=== PATIENT | female | born 1950 | race Caucasian/White ===

== ENCOUNTER 2018-03-03 01:06 | Outpatient (CLI) | payer MEDICARE, BC, SELFPAY ==
[2018-03-03 11:04] LABS: ALT 24 U/L (12-78); AST 21 U/L (15-37); Albumin 3.5 g/dL (3.4-5.0); Alkaline Phosphatase 112 U/L (46-116); Anion Gap 5.7 mmol/L (3-11); BUN 11 mg/dL (7-18); Bilirubin, Total 0.6 mg/dL (0.2-1.0); CO2 28.3 mmol/L (21.0-32.0); Calcium 8.4 mg/dL (8.5-10.1); Chloride 105 mmol/L (98-107); Cholesterol 296 mg/dL (50-200); Estimated GFR 54.97 (mL/min/1.73m2); Glucose 93 mg/dL (70-100); HDL Cholesterol 69 mg/dL (40-60); LDL CHOLESTEROL 206 mg/dL (<100); Potassium 4.4 mmol/L (3.5-5.1); Sodium 139 mmol/L (136-145); Total Protein 6.6 g/dL (6.4-8.2); Triglyceride 124 mg/dL (30-150)
== END 2018-03-03 01:26 ==
PROVIDERS: PCP Family Medicine; Visit Provider Family Medicine
DX: E78.00 Pure hypercholesterolemia, unspecified (principal); Z82.49 Family history of ischemic heart disease and other diseases of the circulatory system
CPT/HCPCS: 36415; 80053; 80061; 83721

== ENCOUNTER 2018-03-07 10:38 | Outpatient (CLI) | payer MEDICARE, BC, SELFPAY ==
[2018-03-09 06:43] LABS: Vitamin D 25 Total 19.6 ng/ml (30-100)
== END 2018-03-07 10:58 ==
PROVIDERS: PCP Family Medicine; Visit Provider Family Medicine
DX: M81.0 Age-related osteoporosis without current pathological fracture (principal)
CPT/HCPCS: 36415; 82306

== ENCOUNTER 2019-03-08 01:31 | Outpatient (CLI) | payer MEDICARE, BC, SELFPAY | END 2019-03-08 01:51 | PROVIDERS: PCP Family Medicine; Visit Provider Family Medicine | DX: R69 Illness, unspecified (principal) ==

== ENCOUNTER 2019-03-13 08:07 | Outpatient (CLI) | payer MEDICARE, BC, SELFPAY ==
[2019-03-13 11:51] LABS: ALT 23 U/L (14-59); Calculated LDL 231 mg/dL; Cholesterol 327 mg/dL (50-200); HDL Cholesterol 71 mg/dL (40-60); Triglyceride 125 mg/dL (30-150)
[2019-03-15 07:25] LABS: Vitamin D 25 Total 25.7 ng/ml (30-100)
== END 2019-03-13 08:27 ==
PROVIDERS: PCP Family Medicine; Visit Provider Family Medicine
DX: E78.5 Hyperlipidemia, unspecified (principal); E55.9 Vitamin D deficiency, unspecified
CPT/HCPCS: 36415; 80061; 82306; 84460

== ENCOUNTER 2019-04-03 16:53 | Outpatient (CLI) | payer MEDICARE, BC, SELFPAY ==
--- NOTE | 2019-04-03 15:17 | DI.MAMMO_ITS ---
EXAM: MG MAMMO SCREENING CLINICAL HISTORY: screening Z12.39 TECHNIQUE: Bilateral full field digital CC and MLO mammographic images were obtained with 3D tomosyn thesis and utilizing computer aided detection (CAD). COMPARISON: Available for comparison. FINDINGS: Masses/Architectural Distortion: None seen. Microcalcifications: No suspicious pleomorphic-type are seen. Skin Thickening/Nipple Retraction: None. IMPRESSION: 1. No significant interval change with no specific features of malignancy noted. 2. Unless there is more urgent need, screening mammography is recommended, as per [employer] guidelines. ACR BI-RAD Category- 1 Negative Breast Density - Category A - Almost entirely fatty A negative radiographic report should not delay biopsy if a dominant or clinically suspicious mass is present. Up to ten percent of cancers are not identified on mammography. A negative report may reinforce clinical impression. Adenosis and dense breasts may obscure an underlying neoplasm. False positive reports average 6 to 10%.
== END 2019-04-03 17:13 ==
PROVIDERS: PCP Family Medicine; Visit Provider Nurse Practitioner Family
DX: Z12.31 Encounter for screening mammogram for malignant neoplasm of breast (principal)
CPT/HCPCS: 77063; 77067

== ENCOUNTER 2019-07-06 00:11 | Outpatient (CLI) | payer MEDICARE, BC, SELFPAY ==
[2019-07-06 12:13] LABS: HCT 40.6 % (36.0-46.0); HGB 13.6 g/dL (12.0-15.5); Mean Corp. HGB Concentration 33.5 g/dL (32.0-36.0); Mean Corpuscular Hemoglobin 33.3 pg (27.0-33.0); Mean Corpuscular Volume 99.5 fL (80-95); Mean Platelet Volume 10.9 fL (8.0-11.0); Platelet Count 295 x1000/uL (130-400); RBC 4.08 m/cumm (4.00-5.20); RBC Distribution Width 12.7 % (11.7-14.6); White Blood Cell Count 4.16 k/cumm (4.4-10.8)
[2019-07-06 12:26] LABS: ALT 21 U/L (14-59); AST 15 U/L (15-37); Albumin 3.5 g/dL (3.4-5.0); Alkaline Phosphatase 100 U/L (46-116); Anion Gap 6.7 mmol/L (3-11); BUN 11 mg/dL (7-18); Bilirubin, Total 0.5 mg/dL (0.2-1.0); CO2 27.3 mmol/L (21.0-32.0); CREATININE 0.88 mg/dL (0.55-1.02); Calcium 8.6 mg/dL (8.5-10.1); Calculated LDL 225 mg/dL (<100); Chloride 106 mmol/L (98-107); Cholesterol 313 mg/dL (<200); Glucose 90 mg/dL (74-106); HDL Cholesterol 62 mg/dL (40-60); Sodium 140 mmol/L (136-145); Total Protein 6.7 g/dL (6.4-8.2); Triglyceride 134 mg/dL (<150)
== END 2019-07-06 00:31 ==
PROVIDERS: PCP Family Medicine; Visit Provider Family Medicine
DX: E78.00 Pure hypercholesterolemia, unspecified (principal); Z82.49 Family history of ischemic heart disease and other diseases of the circulatory system
CPT/HCPCS: 36415; 80053; 80061; 85027

== ENCOUNTER 2020-03-24 04:08 | Outpatient (CLI) | payer MEDICARE, BC, SELFPAY ==
[2020-03-24 13:00] LABS: Absolute Basophil Count 0.03 10^3/uL (0.0-0.2); Absolute Eosinophil Count 0.09 10^3/uL (0.0-0.7); Absolute Lymphocyte Count 1.07 10^3/uL (1.2-3.4); Absolute Monocyte Count 0.34 10^3/uL (0.1-0.8); Absolute Neutrophil Count 2.55 10^3/uL (1.2-6.7); Basophils % 0.7; Eosinophils % 2.2; HCT 40.7 % (36.0-46.0); HGB 13.3 g/dL (11.2-15.7); Lymphocytes % 26.2; MCH 33.1 pg (27.0-33.0); MCHC 32.7 % (32.0-36.0); MCV 101.2 fL (80-95); MPV 11.1 fL (8.0-11.0); Monocytes % 8.3; Neutrophils % 62.6; Nucleated RBC 0 %; Platelet Count 300 10^3/uL (130-400); RBC 4.02 10^6/uL (3.93-5.22); RDW 12.9 % (11.7-14.6); RDW-SD 48.4 fL; WBC 4.08 10^3/uL (4.4-10.8)
[2020-03-24 13:58] LABS: Calculated LDL 207 mg/dL (<100); Cholesterol 305 mg/dL (<200); HDL Cholesterol 71 mg/dL (40-60); Triglyceride 137 mg/dL (<150)
[2020-03-24 14:05] LABS: Vitamin D 25 Total 21.2 ng/ml (30-100)
== END 2020-03-24 04:28 ==
PROVIDERS: PCP Family Medicine; Visit Provider Family Medicine
DX: E78.00 Pure hypercholesterolemia, unspecified (principal); E55.9 Vitamin D deficiency, unspecified; G56.00 Carpal tunnel syndrome, unspecified upper limb
CPT/HCPCS: 36415; 80061; 82306; 85025

== ENCOUNTER 2020-04-03 02:46 | Outpatient (CLI) | payer MEDICARE, BC, SELFPAY ==
[2020-04-03 13:28] LABS: ALT 23 U/L (14-59); AST 18 U/L (15-37); Albumin 3.5 g/dL (3.4-5.0); Alkaline Phosphatase 96 U/L (46-116); Anion Gap 4.7 mmol/L (3-11); BUN 12 mg/dL (7-18); Bilirubin, Total 0.6 mg/dL (0.2-1.0); CO2 29.3 mmol/L (21.0-32.0); CREATININE 1.03 mg/dL (0.55-1.02); Calcium 8.7 mg/dL (8.5-10.1); Chloride 106 mmol/L (98-107); Estimated GFR 52.82 (mL/min/1.73m2); Folate 6.6 ng/mL (8.6-20.0); Glucose 91 mg/dL (74-106); Potassium 4.6 mmol/L (3.5-5.1); Sodium 140 mmol/L (136-145); TSH 2.23 uIU/mL (0.36-3.74); Total Protein 6.8 g/dL (6.4-8.2); Vitamin B12 289 pg/mL (193-986)
== END 2020-04-03 03:06 ==
PROVIDERS: PCP Family Medicine; Visit Provider Family Medicine
DX: E78.5 Hyperlipidemia, unspecified (principal); D75.89 Other specified diseases of blood and blood-forming organs
CPT/HCPCS: 36415; 80053; 82607; 82746; 84443

== ENCOUNTER 2020-05-26 15:46 | Outpatient (CLI) | payer MEDICARE, BC, SELFPAY ==
--- NOTE | 2020-05-26 15:15 | DI.RAD_ITS ---
EXAM: XR KNEE RT 3V AP,LAT,DEBRA CLINICAL HISTORY: right knee pain. TECHNIQUE: 2D digital imaging was performed. COMPARISON: No exams were available for comparison FINDINGS: BONES: No acute fracture is present. No bony destructive lesion is seen. JOINTS: The knee is normally aligned. There is a small joint effusion. The articular surfaces are we ll maintained. SOFT TISSUE: Normal. IMPRESSION: Small joint effusion. DATA REPOSITORY: RADIATION DOSE DELIVERED: -- EXAM: XR KNEE RT 3V AP,LAT,DEBRA CLINICAL HISTORY: right knee pain. TECHNIQUE: 2D digital imaging was performed. COMPARISON: No exams were available for comparison FINDINGS: BONES: No acute fracture is present. No bony destructive lesion is seen. JOINTS: The knee is normally aligned. There is a small joint effusion. The articular surfaces are we ll maintained. SOFT TISSUE: Normal.
== END 2020-05-26 16:06 ==
PROVIDERS: PCP Family Medicine; Referring Provider Family Medicine; Visit Provider Student in an Organized Health Care Education/Training Program
DX: M25.461 Effusion, right knee (principal); M25.561 Pain in right knee; M70.51 Other bursitis of knee, right knee; M17.11 Unilateral primary osteoarthritis, right knee
CPT/HCPCS: 73562; 99203

== ENCOUNTER 2020-09-09 09:43 | Outpatient (CLI) | payer MEDICARE, BC, SELFPAY ==
[2020-09-10 18:30] LABS: COVID-19 RT-PCR UVMMC Result Negative (Negative)
== END 2020-09-09 09:44 | disposition home or self-care (01) ==
LOC: LBO 09:44
PROVIDERS: PCP Family Medicine; Visit Provider Nurse Practitioner
DX: Z20.822 Contact with and (suspected) exposure to COVID-19 (principal)
CPT/HCPCS: U0003; U0005

== ENCOUNTER 2020-09-22 03:18 | Outpatient (CLI) | payer MEDICARE, BC, SELFPAY ==
[2020-09-22 12:52] LABS: Abs Immature Grans 0.01 10^3/uL (0.0-0.06); Absolute Basophil Count 0.06 10^3/uL (0.0-0.2); Absolute Eosinophil Count 0.13 10^3/uL (0.0-0.7); Absolute Lymphocyte Count 1.12 10^3/uL (1.2-3.4); Absolute Monocyte Count 0.46 10^3/uL (0.1-0.8); Absolute Neutrophil Count 3.64 10^3/uL (1.2-6.7); Basophils % 1.1; Eosinophils % 2.4; HCT 41.2 % (36.0-46.0); HGB 14.1 g/dL (11.2-15.7); Immature Grans % 0.2; Lymphocytes % 20.7; MCH 33.7 pg (27.0-33.0); MCHC 34.2 % (32.0-36.0); MCV 98.6 fL (80-95); Monocytes % 8.5; Neutrophils % 67.1; Nucleated RBC 0 %; Platelet Count 291 10^3/uL (130-400); RBC 4.18 10^6/uL (3.93-5.22); RDW 12.3 % (11.7-14.6); RDW-SD 44.4 fL; WBC 5.42 10^3/uL (4.4-10.8)
[2020-09-22 13:05] LABS: Hemoglobin A1C 5.3 % (<5.7)
[2020-09-22 13:21] LABS: Vitamin D 25 Total 26.2 ng/mL (30-100)
[2020-09-22 13:22] LABS: BUN 10 mg/dL (7-18); CREATININE 1.1 mg/dL (0.55-1.02); Calcium 9.1 mg/dL (8.5-10.1); Calculated LDL 188 mg/dL (<100); Chloride 107 mmol/L (98-107); Cholesterol 285 mg/dL (<200); Estimated GFR 48.96 (mL/min/1.73m2); Glucose 93 mg/dL (74-106); HDL Cholesterol 66 mg/dL (40-60); Potassium 4.9 mmol/L (3.5-5.1); Sodium 140 mmol/L (136-145); Triglyceride 159 mg/dL (<150); Vitamin B12 261 pg/mL (193-986)
== END 2020-09-22 03:19 | disposition home or self-care (01) ==
LOC: LOS 03:18
PROVIDERS: PCP Family Medicine; Visit Provider Nurse Practitioner Family
DX: E78.5 Hyperlipidemia, unspecified (principal); E53.8 Deficiency of other specified B group vitamins; E55.9 Vitamin D deficiency, unspecified; D75.89 Other specified diseases of blood and blood-forming organs; R79.89 Other specified abnormal findings of blood chemistry
CPT/HCPCS: 36415; 80048; 80061; 82306; 82607; 82746; 83036; 85025

== ENCOUNTER 2020-12-31 04:49 | Emergency (ER) | payer MEDICARE, BC, SELFPAY ==
[2020-12-31] VITALS (60 sets, daily range): BP systolic 122–190; BP diastolic 50–165; PULSE 63–144; RESP 10–25; TEMP 36.7; O2SAT 93–100
--- NOTE | 2020-12-31 04:45 | RT.EKG_ITS ---
APPROVED REPORT Exam: Resting ECG Reason for Exam: chest pain Patient Location: E HR:81 bpm ECG Measurements Heart Rate 81 AXIS WI 163 P 42 QRSd 89 QRS 17 QT 375 T 10 QTc 435 Conclusion Sinus rhythm...normal P axis, V-rate 60- 99 Normal Dougherty I have reviewed and interpreted ECG and agree with software generated interpretation. Normal Electrocardiogram
--- NOTE | 2020-12-31 05:06 | W.ED.GENAD ---
Discharge Plan Disposition Patient Disposition: HOME Condition: Stable Discharge Details Clinical Impression: Chest pain, SOB (shortness of breath) Primary Care Provider: Pratibha Luke ED Provider: Elenita Edmonds Home Meds and New Rx's Prescriptions: Continued cholecalciferol (vitamin D3) 2,000 unit/drop drops 2,000 unit PO DAILY RF: 0 (DME) Aerochamber Plus Flow-Vu Spacer 1 ea Miscellaneous Q4H PRN Qty: 1 RF: 0 albuterol sulfate [Proventil HFA] 90 mcg/actuation HFA aerosol inhaler 2 puff inhalation Q6H PRN (Reason: shortness of breath or wheezing) Qty: 18 RF: 4 red yeast rice 600 mg Tablet 600 mg PO BID RF: 0 coenzyme Q10 [CoQ-10] 100 mg Capsule 100 mg PO BID RF: 0 No Action omeprazole 20 mg capsule,delayed release(DR/EC) 40 mg PO DAILY RF: 0 Discharge Instructions Instructions: Chest Pain (ED), Dyspnea (ED) Additional Instructions: Please return immediately to the emergency department if you develop any new or worsening symptoms, if your condition does not improve as expected, or if you become otherwise concerned. It is extremely important that you call soon as possible to make an appointment to be seen in follow-up for this visit by your primary care doctor and a mother superior. It is also extremely important that you undergo a stress test as we discussed. Referrals: Pratibha Luke, DENITA [Primary Care Provider] - Any Dias MD [ [facility] STAFF PHYSICIAN] - Varinder Morton MD [ CONSULTING PHYSICIAN] - Discharge Data Discharge Date/Time-TO BE ENTERED AT DEPARTURE: 12/31/20 11:02 Medical Decision Making <Cecil Longoria MD - Last Filed: 12/31/20 07:22> Patient presenting to ED with complaint of chest pressure and shortness of breath with exertion. Chest pressure and shortness of breath are unrelated. Chest pressure is random. Shortness of breath with exertion. This has been ongoing for about a month. Chest pressure has been ongoing for years. Her EKG is normal today. Do not think this is anginal equivalent but certainly need to consider it. Also consider anemia to she does not appear very pale. Does not strike me as being related to PE. Will obtain chest x-ray and cardiac labs. Will give aspirin pending work-up results. Laboratory studies are unremarkable. She is not anemic. First troponin is negative. Assuming her shortness of breath with exertion is anginal equivalent, she still scores low probability both by HEART as well as EDACS. I have discussed risk stratification and outpatient versus inpatient work-up. I think it is reasonable if second troponin and EKG remains unchanged patient can be discharged for outpatient stress testing and follow-up with primary care. She is comfortable with this plan but understands that any new or worsening symptoms would require return to ED for reevaluation possible admission. Patient be signed out to oncoming physician to follow-up on second troponin and disposition patient Medical Records Medical records reviewed: Yes I reviewed the patient's medical records. Lab Data Lab results reviewed: Yes I reviewed the patient's lab results. ECG Data Attestation: I personally reviewed and interpreted this ECG (s) as follows: Prior ECG tracings: available for review Interpretation: see EKG <Elenita Edmonds MD - Last Filed: 01/12/21 21:06> Linda Hoffmann was signed out to me at time of shift change with troponin pending. Troponin resulted as negative. On my evaluation Pt denies any active chest pain, reports that she has had intermittent chest pressure for years that has not been worsening and is not currently occuring. She reports exertional SOB over the past month. Denies any SOB at rest or current SOB. Pt states that she feels well and is ready to go home. Exam/hx at this time not c/w pulmonary embolus, acute aortic process, sepsis. Concern for SOB as being possible anginal equivalent. Low risk by HEART score, plan for outpt f/u with cardiology, outpt stress testing. I had a lengthy discussion with Patient regarding return to emergency department precautions, home care, and importance of outpatient follow-up. Pt verbalizes understanding of the plan and is amenable. Patient discharged to home with clear plan for outpatient follow-up. All questions were answered. Disposition decision was made weighing the risks and benefits of hospitalization versus outpatient treatment, the risk for further decompensation, and the patient's wishes. Medical Records Medical records reviewed: Yes I reviewed the patient's medical records. Lab Data Lab results reviewed: Yes I reviewed the patient's lab results. Labs: Laboratory Tests Range/Units 12/31/20 12/31/20 12/31/20 05:25 05:25 06:40 WBC (4.4-10.8) 10^3/uL 4.47 RBC (3.93-5.22) 10^6/uL 4.11 Hgb (11.2-15.7) g/dL 13.6 Hct (36.0-46.0) % 40.5 MCV (80-95) fL 98.5 H MCH (27.0-33.0) pg 33.1 H MCHC (32.0-36.0) % 33.6 RDW (11.7-14.6) % 12.3 Plt Count (130-400) 10^3/uL 268 MPV (8.0-11.0) fL 10.6 Immature Gran % 0.2 Neutrophils % 58.0 Lymphocytes % 26.8 Monocytes % 11.4 Eosinophils % 2.9 Basophils % 0.7 Nucleated RBC % % 0 Absolute Neutrophils (1.2-6.7) 10^3/uL 2.59 Absolute Lymphocytes (1.2-3.4) 10^3/uL 1.20 Absolute Monocytes (0.1-0.8) 10^3/uL 0.51 Absolute Eosinophils (0.0-0.7) 10^3/uL 0.13 Absolute Basophils (0.0-0.2) 10^3/uL 0.03 Sodium (136-145) mmol/L 142 Potassium (3.5-5.1) mmol/L 3.8 Chloride (98-107) mmol/L 107 Carbon Dioxide (21.0-32.0) mmol/L 26.6 Anion Gap (3-11) mmol/L 8.4 BUN (7-18) mg/dL 9 Creatinine (0.55-1.02) mg/dL 1.0 Estimated GFR/1.73 m2 (mL/min/1.73m2) 54.66 Glucose (74-106) mg/dL 102 Calcium (8.5-10.1) mg/dL 8.7 Magnesium (1.8-2.4) mg/dL 2.1 Total Bilirubin (0.2-1.0) mg/dL 0.6 AST (15-37) U/L 20 ALT (14-59) U/L 26 Alkaline Phosphatase (46-116) U/L 93 Troponin I (<0.06) ng/mL < 0.05 NT-Pro-B Natriuret Pep (<300) pg/mL 46 Total Protein (6.4-8.2) g/dL 7.1 Albumin (3.4-5.0) g/dL 3.5 COVID-19 Source Nasal/Nares SARS-CoV-2 (PCR) (Negative) Negative Range/Units 12/31/20 08:20 WBC (4.4-10.8) 10^3/uL RBC (3.93-5.22) 10^6/uL Hgb (11.2-15.7) g/dL Hct (36.0-46.0) % MCV (80-95) fL MCH (27.0-33.0) pg MCHC (32.0-36.0) % RDW (11.7-14.6) % Plt Count (130-400) 10^3/uL MPV (8.0-11.0) fL Immature Gran % Neutrophils % Lymphocytes % Monocytes % Eosinophils % Basophils % Nucleated RBC % % Absolute Neutrophils (1.2-6.7) 10^3/uL Absolute Lymphocytes (1.2-3.4) 10^3/uL Absolute Monocytes (0.1-0.8) 10^3/uL Absolute Eosinophils (0.0-0.7) 10^3/uL Absolute Basophils (0.0-0.2) 10^3/uL Sodium (136-145) mmol/L Potassium (3.5-5.1) mmol/L Chloride (98-107) mmol/L Carbon Dioxide (21.0-32.0) mmol/L Anion Gap (3-11) mmol/L BUN (7-18) mg/dL Creatinine (0.55-1.02) mg/dL Estimated GFR/1.73 m2 (mL/min/1.73m2) Glucose (74-106) mg/dL Calcium (8.5-10.1) mg/dL Magnesium (1.8-2.4) mg/dL Total Bilirubin (0.2-1.0) mg/dL AST (15-37) U/L ALT (14-59) U/L Alkaline Phosphatase (46-116) U/L Troponin I (<0.06) ng/mL < 0.05 NT-Pro-B Natriuret Pep (<300) pg/mL Total Protein (6.4-8.2) g/dL Albumin (3.4-5.0) g/dL COVID-19 Source SARS-CoV-2 (PCR) (Negative) HPI <Cecil Longoria MD - Last Filed: 12/31/20 07:22> General Mode of arrival: ambulatory. Date/Time Provider Initiated Documentation: 12/31/20 05:06. Limitations to Documentation: no limitations. Information obtained by: patient and RN notes reviewed. HPI Narrative: Patient presents to ED with complaint of chest discomfort as well as shortness of breath. Patient reports the chest discomfort is a pinching tingling pressure in her chest that she is actually had for quite some time on and off. Not any different than before. It is random in nature. Seem to be a little bit worse to her this morning. However, what is really bothering her is shortness of breath with exertion. She has difficulty walking or even going up stairs at this point. She has not experienced any of the chest pressure sensation with exertion. She does not develop shortness of breath with the chest pain. She denies fever, cough, URI symptoms. She does have an albuterol inhaler and states she was told she has asthma but has not really used it this summer she has no leg pain or leg swelling. She has no prior history of cardiac disease or thromboembolic disease. Currently asymptomatic in the ED Related Data Home Medications Medication Instructions Recorded Confirmed cholecalciferol (vitamin D3) 2,000 unit PO DAILY 03/27/19 01/08/21 inhalational spacing device #1 unit 06/30/20 01/08/21 albuterol sulfate 90 mcg/actuation 2 puff INHALATION Q6H PRN #18 g 07/02/20 01/08/21 aerosol inhaler coenzyme Q10 [CoQ-10] 100 mg PO BID 12/31/20 01/08/21 red yeast rice 600 mg PO BID 12/31/20 01/08/21 omeprazole 20 mg capsule,delayed 40 mg PO DAILY cap 01/08/21 01/08/21 release Previous Rx's Medication Instructions Recorded inhalational spacing device #1 unit 06/30/20 albuterol sulfate 90 mcg/actuation 2 puff INHALATION Q6H PRN #18 g 07/02/20 aerosol inhaler Allergies Allergy/AdvReac Type Severity Reaction Status Date / Time pravastatin AdvReac Intermediate ARTHRALGIAS Unverified 01/08/21 10:38 atorvastatin AdvReac Mild muscle Unverified 01/08/21 10:38 aches [id number] Reductase AdvReac Mild swelling/my Verified 01/08/21 10:38 Inhibitor algias General Stated Complaint: Chest Pain CATHY: 2 Review of Systems <Cecil Longoria MD - Last Filed: 12/31/20 07:22> Narrative: As documented in HPI otherwise negative as below. Const: no fever, chills, weakness Resp: no cough, pleuritic pain CV: no diaphoresis, edema, syncope GI: no abdominal pain, nausea, vomiting, diarrhea Neuro: no headache, numbness, focal weakness, confusion PFSH <Cecil Longoria MD - Last Filed: 12/31/20 07:22> Medical History Degenerative joint disease of right knee Folate deficiency GERD (gastroesophageal reflux disease) Gluten intolerance Hyperlipidemia IBS (irritable bowel syndrome) Macrocytosis without anemia Mild intermittent reactive airway disease Vitamin D deficiency Surgical History S/P colonoscopy Family History Mother , AGE 62 Asthma Father , AGE 68 Lung cancer Throat cancer Sister No problems noted. Sister No problems noted. Brother No problems noted. Brother , AGE 71 Heart disease Brother Diabetes Hyperlipidemia Brother , AGE 27 Heart disease Brother No problems noted. Son No problems noted. Son No problems noted. Daughter No problems noted. Maternal Grandfather , age 71 Diabetes Heart disease Paternal Grandfather , age 67 Heart disease Maternal Grandmother , age 78 Breast cancer Stomach cancer Paternal Grandmother , age 86 Heart disease Hypertension Social History Smoking/Tobacco Use Status: Never Second Hand Exposure: Yes Smoking risk assessment performed?: Yes Alcohol Intake: never Drug use: Never Substance use type: does not use Caregiver/Support person: No Household members: spouse Housing: house Communication Needs: None Do you need help understanding health information?: Rarely Pets and animals: Yes Pets and animals: cat(s) and dog(s) Sexually active: No Current gender identity: female What is your relationship status?: How often do you talk on the phone with friends or family?: three or more times per week How often do you get together with friends or relatives?: twice per week How often do you attend yazidism or religion services?: decline to answer Do you belong to any clubs or organized social groups?: yes Panel score (0-1 are the most socially isolated patients): 3 What type of physical activity do you participate in: walking and other Details: exercise bike Duration: 15-30 minutes/day Frequency: 1-2 times per week Amy/Anabaptism: [employer] Special amy needs: No Seatbelt use: always Helmet use: Yes Helmet use: sometimes Drive intox or ride w/intox bobtail driver: No Do you feel safe at home: Yes Do you feel safe in your relationship?: Yes Victim of physical abuse: No Victim of emotional abuse: No Victim of sexual abuse: No Would you like helpful sources: No Exam <Cecil Longoria MD - Last Filed: 12/31/20 07:22> Narrative Exam Narrative: Const: WDWN female in NAD. HEENT: NC/AT. Normal facial exam. Eyes: Normal conjunctiva and sclera. Neck: Supple. Trachea midline. Lungs: Normal respiratory effort. Lungs are clear. Cor: RRR without murmur/gallop. Good radial pulses. GI: Soft. NT/ND. No guarding or rebound. Neuro: A+O x 3. Normal speech, mentation, gait. Cranial nerves II - XII grossly intact. No gross motor or sensory deficit. Ext: No C/C/E. No calf tenderness. Skin: Warm and dry without rash. Course <Cecil Longoria MD - Last Filed: 12/31/20 07:22> Vital Signs Vital signs: Vital Signs Temperature 98.1 F 12/31/20 05:02 Pulse 76 12/31/20 05:02 Respiratory Rate 20 12/31/20 05:02 Blood Pressure 181/73 H 12/31/20 05:02 Pulse Oximetry 99 12/31/20 05:02 Temperature 98.1 F 12/31/20 05:02 Temperature Source Skin 12/31/20 05:02 Pulse 76 12/31/20 05:02 Respiratory Rate 20 12/31/20 05:02 Blood Pressure 181/73 H 12/31/20 05:02 Pulse Oximetry 99 12/31/20 05:02 Oxygen Delivery Method Room Air 12/31/20 05:02 Oxygen Flow Rate 0 12/31/20 05:02 Pain Level 5 12/31/20 05:02 Sign Out <Cecil Longoria MD - Last Filed: 12/31/20 07:22> Sign Out Data: Sign Out Comment: If repeat EKG and troponin are negative patient be discharged home with outpatient stress testing and follow-up Last updated by Cecil Longoria MD at 12/31/20 07:48
--- NOTE | 2020-12-31 05:15 | DI.RAD_ITS ---
Exam(s) XR CHEST 2V PA LATERAL EXAM: XR CHEST 2V PA LATERAL CLINICAL HISTORY: sob. TECHNIQUE: 2D digital imaging was performed. COMPARISON: Prior chest x-ray June 2009 FINDINGS: Heart size is normal. The mediastinum is not widened. Lungs are clear. No infiltrates nor pleural effusions. Chest leads in place IMPRESSION: No acute pulmonary findings. DATA REPOSITORY: RADIATION DOSE DELIVERED:
[2020-12-31 05:36] LABS: Abs Immature Grans 0.01 10^3/uL (0.0-0.06); Absolute Basophil Count 0.03 10^3/uL (0.0-0.2); Absolute Eosinophil Count 0.13 10^3/uL (0.0-0.7); Absolute Monocyte Count 0.51 10^3/uL (0.1-0.8); Absolute Neutrophil Count 2.59 10^3/uL (1.2-6.7); Basophils % 0.7; Eosinophils % 2.9; HCT 40.5 % (36.0-46.0); HGB 13.6 g/dL (11.2-15.7); Immature Grans % 0.2; Lymphocytes % 26.8; MCH 33.1 pg (27.0-33.0); MCHC 33.6 % (32.0-36.0); MCV 98.5 fL (80-95); MPV 10.6 fL (8.0-11.0); Monocytes % 11.4; Nucleated RBC 0 %; Platelet Count 268 10^3/uL (130-400); RBC 4.11 10^6/uL (3.93-5.22); RDW 12.3 % (11.7-14.6); RDW-SD 44.7 fL; WBC 4.47 10^3/uL (4.4-10.8)
[2020-12-31] MEDS: Aspirin 81 MG CHEW 324 MG CH (05:44)
[2020-12-31 05:56] LABS: ALT 26 U/L (14-59); AST 20 U/L (15-37); Albumin 3.5 g/dL (3.4-5.0); Alkaline Phosphatase 93 U/L (46-116); Anion Gap 8.4 mmol/L (3-11); BUN 9 mg/dL (7-18); Bilirubin, Total 0.6 mg/dL (0.2-1.0); CO2 26.6 mmol/L (21.0-32.0); Calcium 8.7 mg/dL (8.5-10.1); Chloride 107 mmol/L (98-107); Estimated GFR 54.66 (mL/min/1.73m2); Glucose 102 mg/dL (74-106); Magnesium 2.1 mg/dL (1.8-2.4); NT-proBNP 46 pg/mL (<300); Potassium 3.8 mmol/L (3.5-5.1); Sodium 142 mmol/L (136-145); Total Protein 7.1 g/dL (6.4-8.2)
[2020-12-31 05:58] LABS: Troponin I < 0.05 ng/mL (<0.06)
[2020-12-31 06:48] LABS: Source Nasal/Nares
--- NOTE | 2020-12-31 07:22 | NUR.NOTE ---
0715 c/o burning sensation in chest--Dr Longoria notified,Nursing Note:
--- NOTE | 2020-12-31 07:32 | DI.VRAD_ITS ---
PROCEDURE INFORMATION: Exam: XR Chest Exam date and time: 12/31/2020 5:20 AM Age: 70 years old Clinical indication: Other: SOB TECHNIQUE: Imaging protocol: XR of the chest. Views: 2 views. COMPARISON: No relevant prior studies available. FINDINGS: Lungs: Mild chronic interstitial prominence. No consolidation. Pleural spaces: No pleural effusion. No pneumothorax. Heart/Mediastinum: No cardiomegaly. Bones/joints: Unremarkable. IMPRESSION: No acute findings. Dictated and Authenticated by: Federico Carolina MD. Ordering:CLARK Jacob MD
[2020-12-31 07:37] LABS: COVID-19 PCR Negative (Negative)
--- NOTE | 2020-12-31 07:54 | NUR.NOTE ---
Nursing Note: [facility] Neuclear Medicine Exercise Tolerance Test order faxed to [facility], for shortness of breath. Kate Fox
[2020-12-31 08:42] LABS: Troponin I < 0.05 ng/mL (<0.06)
--- NOTE | 2020-12-31 10:24 | NUR.NOTE ---
Addendum entered by Kate Fox 12/31/20 11:36: Referral faxed to [facility] Pulmonology for SOB w/exertion, in 1 to 2 weeks. Kate Fox Original Note: Nursing Note: Referral faxed to [facility] Cardiology for chest pain, in 1 to 2 weeks. Kate Fox
== END 2020-12-31 11:02 | disposition home or self-care (01) ==
PROVIDERS: Emergency Medicine; Emergency Provider Student in an Organized Health Care Education/Training Program; PCP Nurse Practitioner Family
DX: R06.02 Shortness of breath (principal); R07.89 Other chest pain
CPT/HCPCS: 36415; 80053; 87635; 93005; 99284; 71046; 83735; 83880; 84484; 85025; 93010; 99283

== ENCOUNTER 2021-01-05 00:47 | Outpatient (CLI) | payer MEDICARE, BC, SELFPAY ==
--- NOTE | 2021-01-05 08:45 | DI.NM_ITS ---
APPROVED REPORT Exam: Exercise Treadmill Patient Location: Out-Patient Room/Bed: Stress Nurse: Tamica Lopes RN Ordering Provider:CARMEN LUZ, Contact Number: BMI: 32.22 Baseline Rhythm: Sinus Rhythm Indications: Shortness of breath. Medical History Medical History: Sciatica, Migraines, HLD, DJD. Cardiac Medications: Omeprazole, Red yeast rice, Coenzyme Q10, Albuterol sulfate PRN, Allergies: Pravastatin, Atorvastatin, Statins - Hmg- CoA Reductase Inhibitors Cardiac Risk Factors: Hyperlipidemia, FHX of CAD Previous Cardiac Procedures: None Pretest Chest Pain Characteristics: No chest pain or dyspnea at baseline Exercise History: Physically active Physical Disabilities: None Lung Sounds: Clear to auscultation Heart Sounds: Regular Stress Test Details Test: Exercise stress testing was performed using a Hema protocol. Nuclear Acquisition: Rest Tc-99m/Stress Tc-99m 1 day Rest Isotope: Tc-99m Sestamibi. Dose: 11.8 Date: 01/05/2021 Injection Time: 0845 Stress Isotope: Tc-99m Sestamibi. Dose: 36.8 Date: 01/05/2021 Injection Time: 1012 HR Resting HR Supine: 64 bpm Max Heart Rate (APMHR): 149.036161 bpm Resting HR Standin bpm Target HR (85% APMHR): 126.888057 bpm Max HR Achieved: 148 bpm % of APMHR: 99.33 Recovery HR: 77 bpm HR response to stress: Accelerated HR response to stress BP Resting BP Supine: 136/80 mmHg Resting BP Standin/76 mmHg Max BP: 188/62 mmHg Recovery BP: 140/72 mmHg BP response to stress: Normal blood pressure response to stress. ECG Resting ECG: Sinus Rhythm Ectopy: None. Stress ECG: Sinus Tachycardia ST Change: No significant ST segment changes noted Arrhythmia: PVC couplet Comment: T wave inversion noted in lead III at the start of exercise. Recovery ECG: Sinus Rhythm Recovery ST Change: No significant ST segment changes noted Recovery Arrhythmia: PACs Clinical Reason for Termination: Fatigue Stress Symptoms: Dyspnea Exercise duration: 6 min0 sec Exercise capacity: 7.05 METs Rate Pressure Product: [id number] Stress ECG Conclusion 1. Patient exercised for 6 minutes (7 METS). Exercise was stopped due to fatigue. 2. Patient no symptoms suggestive of ischemia. 3. There is no evidence of ischemia on the ECG portion of the exam. Stress Test Summary STAGE Time (mins) Speed (mph) Grade (%) HR BP SYMPTOMS METS Supine 64 136/80 Standing 78 140/76 1 3 1.7 10 136 160/70 SpO2 97%; mild XAVIER 4.6 2 6 2.5 12 148 182/68 SpO2 97%; mod XAVIER 7 1 min recovery 129 188/62 3 min recovery 83 160/64 6 min recovery 77 140/72 MPI Conclusion This is a poor quality study as there was significant bowel uptake affecting the interpretation. Patient's ejection fraction was greater than 70% with stress. There were no wall motion abnormalitie s. There was no clear evidence of ischemia on the imaging portion exam. If clinical suspicion for ische rossana remains high please consider alternative imaging such as CT coronary angiogram. Radiologist Interpretation Radiologist agrees with Photo Tube Assembler's Interpretation. Radiologist Interpretation by: Bari Garcia MD Interpretation Date/Time: 01/06/2021 08:15:07
== END 2021-01-05 01:07 ==
PROVIDERS: PCP Nurse Practitioner Family; Visit Provider Emergency Medicine
DX: R06.02 Shortness of breath (principal); E78.5 Hyperlipidemia, unspecified; Z82.49 Family history of ischemic heart disease and other diseases of the circulatory system
CPT/HCPCS: 78452; 93016; 93018; 93017

== ENCOUNTER 2021-02-03 00:52 | Outpatient (CLI) | payer MEDICARE, BC, SELFPAY ==
--- NOTE | 2021-02-03 15:03 | DI.US_ITS ---
APPROVED REPORT EXAM: Comprehensive 2D, Doppler, and color-flow Echocardiogram Patient Location: Out-Patient Stra[employer] Machine Operator: Cece Bernardo RDCS (AE) Indications: New murmur, h/o SOB, Chest pain Other Information Study Quality: Adequate Conclusion Left Ventricle : The left ventricle is normal size. The left ventricular ejection fraction is within the normal range. There is normal left ventricular wall thickness. There is normal LV segmental wall motion. The left ventricular diastolic function is normal. LVEF is 59%. Right Ventricle : The right ventricle is normal size. The right ventricular systolic function is norm al. The RVSP is 22 mmHg. Atria : The left atrium size is normal. The right atrium size is normal. Mitral Valve : The mitral valve is normal in structure. Trace mitral regurgitation. No evidence of mi tral valve stenosis. Great Vessels : The aortic root is normal in size. The ascending aorta is normal in size. Aortic arch is normal in caliber. IVC is normal in size and collapses >50% with inspiration. Please see remainder of study for further details. Wall motion Left Ventricle The left ventricle is normal size. The left ventricular ejection fraction is within the normal range. There is normal left ventricular wall thickness. There is normal LV segmental wall motion. The left ventricular diastolic function is normal. There is no ventricular septal defect visualized. LVEF is 5 9%. Right Ventricle The right ventricle is normal size. The right ventricular systolic function is normal. The RVSP is 22 mmHg. Atria The left atrium size is normal. The right atrium size is normal. The interatrial septum is intact wit h no evidence for an atrial septal defect. Aortic Valve The Aortic valve is sclerotic. There is no aortic valvular stenosis. No aortic regurgitation is prese nt. Mitral Valve The mitral valve is normal in structure. No evidence of mitral valve stenosis. Trace mitral regurgita tion. Tricuspid Valve The tricuspid valve is normal in structure. There is no tricuspid valve stenosis. Trace tricuspid reg urgitation. Pulmonic Valve The pulmonary valve is normal in structure. There is no pulmonic valvular stenosis. Trace pulmonic re gurgitation. Great Vessels The aortic root is normal in size. The ascending aorta is normal in size. Aortic arch is normal in ca liber. IVC is normal in size and collapses >50% with inspiration. Pericardium There is no pericardial effusion. 2D Dimensions IVSD d PLAX 0.95 cm F: 0.6-1.0 LV Vol A2C d MOD 49.8 mL LVPW d PLAX 0.95 cm F: 0.6 - 1.0 LV Vol A4C d MOD 65.3 mL LVID d PLAX 4.30 cm F: 3.8 - 5.2 LA vol/ BSA A2C s A-L 21.1 mL/m2 LVDs 2.90 cm F: 2.2 - 3.5 LA vol/ BSA A4C s A-L 26.7 mL/m2 Ao Root d 2.69 cm F: 2.7 - 3.3 LA Vol/ BSA Biplane s A-L 24.5 mL/m2 RA Area A4C 10.90 cm2 LA Area A4C s MOD 16.56 cm2 RA Vol/ BSA A4C s A-L 14.3 mL/m2 LA Area A2C s MOD 15.17 cm2 Ao Asc Diam d 3.07 cm F: 2.3 - 3.1 LV EF A4C MOD 58.4 % LV EF Teichholz 60.9 % LV EF A2C MOD 60.7 % LVEF (Stahl's) 59.08 % F: 54 - 74 LV EF Biplane MOD 59.1 % LV Volume 45.40 mL F: 46 - 106 SV 33.82 mL LV Volume Index 26.70 mL/m2 F: 29 - 61 SV Index 19.83 mL/m2 LV Vol Biplane MOD 57.2 mL FS 32.30 % M-Mode TAPSE 2.41 cm (M/F) >1.7 LV Diastology MV E' medial 0.079 (>0.07 m/s) E/A Ratio 0.8 LV E/e MED 9.25 (<14) MV E Vmax 0.74 (0.4-1.3 m/s) MV E' lateral 0.066 (>0.1 m/s) MV A Vmax 0.90 (0.4-1.3 m/s) LV E/e LAT 11.10 (<14) MV E/A Ratio 0.80 MV E/E' medial 9.26 MV E/E' lateral 11.15 Aortic Valve LVOT Area 3.34 cm2 AoV Area Vmax 2.52 cm2 LVOT Vmax 1.10 m/s AoV Area/ BSA (Vmax) 1.47 cm2/m2 LVOT Mean Femi. 0.70 m/s LAURA Mean Femi. 1.98 cm2 LVOT Peak Grad 4.8 mmHg LAURA Mean Femi. Index 1.16 cm2/m2 LVOT Mean Grad 2.3 mmHg LVOT VTI 0.246 m LVOT Diam s 2.05 cm AoV Vmax 1.46 m/s Velocity Ratio 0.75 AoV Mean Femi. 1.19 m/s AoV Peak Grad 8.5 mmHg LVOT SV 82.24 mL AoV Mean Grad 6.0 mmHg AoV VTI 0.329 m AoV Area VTI 2.50 cm2 AoV Area/ BSA (VTI) 1.46 cm/m2 Mitral Valve MV DT 221 (160-240 msec) MV PHT 64 msec MV Area PHT 3.43 cm2 MV VTI 0.262 m MV Area VTI 3.14 (4.0-6.0 cm2) Pulmonary Valve PV Vmax 1.15 (0.5-1.5 m/s) RVOT Peak Gr. 3.56 mmHg PV Peak Grad 5.3 mmHg RVOT Mean Gr. 1.70 mmHg PV Mean Grad 2.7 mmHg RVOT VTI 0.183 m PV VTI 0.229 m RVOT Vmax 0.94 m/s Tricuspid Valve TR Peak Grad 19.3 mmHg TR Vmax 2.20 m/s RA Pressure 3.00 mmHg RVSP (TR) 22.4 mmHg
== END 2021-02-03 01:12 ==
PROVIDERS: PCP Nurse Practitioner Family; Visit Provider Nurse Practitioner Family
DX: R06.02 Shortness of breath (principal); R07.9 Chest pain, unspecified
CPT/HCPCS: 93306

== ENCOUNTER 2021-03-20 01:09 | Outpatient (CLI) | payer MEDICARE, BC, SELFPAY ==
[2021-03-20 12:55] LABS: Calculated LDL 224 mg/dL (<100); Cholesterol 323 mg/dL (<200); HDL Cholesterol 69 mg/dL (40-60); Triglyceride 151 mg/dL (<150)
== END 2021-03-20 01:10 | disposition home or self-care (01) ==
LOC: LOS 01:10
PROVIDERS: PCP Nurse Practitioner Family; Visit Provider Nurse Practitioner Family
DX: E78.5 Hyperlipidemia, unspecified (principal)
CPT/HCPCS: 36415; 80061

== ENCOUNTER 2021-05-26 02:27 | Outpatient (CLI) | payer MEDICARE, BC, SELFPAY ==
[2021-05-26 11:45] LABS: Calculated LDL 224 mg/dL (<100); Cholesterol 320 mg/dL (<200); HDL Cholesterol 74 mg/dL (40-60); Triglyceride 111 mg/dL (<150)
== END 2021-05-26 02:28 | disposition home or self-care (01) ==
LOC: LBO 02:27
PROVIDERS: PCP Nurse Practitioner Family; Visit Provider Nurse Practitioner Family
DX: E78.5 Hyperlipidemia, unspecified (principal)
CPT/HCPCS: 36415; 80061

== ENCOUNTER 2021-06-03 02:39 | Outpatient (CLI) | payer MEDICARE, BC, SELFPAY ==
[2021-06-03 09:22] LABS: FREE T4 0.97 ng/dL (0.76-1.46); TSH 2.17 uIU/mL (0.36-3.74)
[2021-06-03 16:26] LABS: T3,Free 3.4 pg/mL (2.8-5.3)
[2021-06-04 00:23] LABS: Vitamin D 25 Total 25.7 ng/mL (30-100)
== END 2021-06-03 02:40 | disposition home or self-care (01) ==
LOC: LBO 02:39
PROVIDERS: PCP Nurse Practitioner Family; Visit Provider Naturopath
DX: E78.00 Pure hypercholesterolemia, unspecified (principal); M85.80 Other specified disorders of bone density and structure, unspecified site; K21.9 Gastro-esophageal reflux disease without esophagitis; E55.9 Vitamin D deficiency, unspecified; E66.9 Obesity, unspecified; R53.83 Other fatigue; J45.30 Mild persistent asthma, uncomplicated
CPT/HCPCS: 36415; 82306; 84439; 84443; 84481

== ENCOUNTER 2021-09-23 03:05 | Outpatient (CLI) | payer MEDICARE, BC, SELFPAY ==
[2021-09-23 08:40] LABS: Calcium 8.4 mg/dL (8.5-10.1); Calculated LDL 224 mg/dL (<100); Cholesterol 320 mg/dL (<200); HDL Cholesterol 69 mg/dL (40-60); Triglyceride 136 mg/dL (<150)
[2021-09-23 08:49] LABS: PHOSPHORUS 3.7 mg/dL (2.6-4.7)
[2021-09-23 17:21] LABS: Estradiol <12 pg/mL (See Note)
[2021-09-24 09:38] LABS: Parathyroid Hormone,Intact 107 pg/mL (19-88)
[2021-10-06 16:55] LABS: Procollagen I IntactN-Terminal 47 mcg/L
== END 2021-09-23 03:06 | disposition home or self-care (01) ==
LOC: LBO 03:05
PROVIDERS: PCP Nurse Practitioner Family; Visit Provider Naturopath
DX: E78.00 Pure hypercholesterolemia, unspecified (principal); M85.80 Other specified disorders of bone density and structure, unspecified site; N39.3 Stress incontinence (female) (male); J45.30 Mild persistent asthma, uncomplicated; K21.9 Gastro-esophageal reflux disease without esophagitis; N95.1 Menopausal and female climacteric states
CPT/HCPCS: 36415; 80061; 83519; 82310; 82670; 83970; 84100

== ENCOUNTER 2021-12-09 23:53 | Outpatient (REF) | payer MEDICARE, BC, SELFPAY | END 2021-12-09 23:54 | disposition home or self-care (01) | LOC: LBN 23:53 | PROVIDERS: PCP Nurse Practitioner Family; Visit Provider Nurse Practitioner Family | DX: N39.0 Urinary tract infection, site not specified (principal) | CPT/HCPCS: 87086 ==

== ENCOUNTER → 2022-02-17 00:39 | Outpatient (CLI) | payer MEDICARE, BC, SELFPAY ==
--- NOTE | 2022-02-17 | DI.US_ITS ---
Exam(s) US THYROID EXAM: US THYROID CLINICAL HISTORY: DISORDER PARATHYROID GLAND E21.5, TO R/O PARATHYROID MASS. TECHNIQUE: Ultrasound thyroid performed using standard protocol. COMPARISON: US US ECHOCARDIOGRAM from 02/03/2021 FINDINGS: Both thyroid lobes exhibit normal size, as does the isthmus. The echotexture of the thyroid lobes is normal. There are no thyroid nodules. RIGHT THYROID LOBE: Measures 1.5 cm AP x 1.3 cm wide x 4.0 cm craniocaudal No nodules. ISTHMUS: Normal thickness. There are no nodules in the isthmus. LEFT THYROID LOBE: Measures 1.5 cm AP x 1.0 wide x 3.7 cm craniocaudal No nodules. LYMPH NODES: There is no significant adenopathy. IMPRESSION: Normal study. Thyroid gland exhibits normal size and echotexture. There are no thyroid nodules. Th ere is no lymphadenopathy. DATA REPOSITORY:
== END ==
PROVIDERS: PCP Nurse Practitioner Family; Visit Provider Naturopath
DX: E21.4 Other specified disorders of parathyroid gland (principal)
CPT/HCPCS: 76536

== ENCOUNTER → 2022-04-12 01:33 | Outpatient (CLI) | payer MEDICARE, BC, SELFPAY ==
--- NOTE | 2022-04-12 09:00 | DI.MAMMO_ITS ---
Exam(s) MAMMO SCREENING EXAM: MAMMO SCREENING CLINICAL HISTORY: screening, Z12.39. TECHNIQUE: Bilateral full field digital CC and MLO mammographic images were obtained with 3D tomosyn thesis and utilizing computer aided detection (CAD). COMPARISON: Prior mammograms were reviewed. FINDINGS: There has been no significant change in the appearance and distribution of the fibroglandular tissue. There are no new spiculated masses nor malignant appearing microcalcification groups. There is no significant architectural distortion nor skin thickening-retraction. IMPRESSION: No radiographic evidence of malignancy. BI-RADS Category 1 - Negative Breast Density - Category B - Scattered areas of fibroglandular density Breast density Category C or D implies that the patient has dense breast tissue. Dense breast tissue can make it harder to find cancer on a mammogram. Dense breast tissue is also associated with an incr eased risk of breast cancer. This information about the result of the mammogram report was provided to the patient to raise their awareness. Use this report when you speak with the patient about their risks for breast cancer, which includes their family history. At that time, you may recommend additional screening tests (Ultrasoun d or MRI) as these tests may add significant information. A negative radiographic report should not delay biopsy if a dominant or clinically suspicious mass is present. Up to ten percent of cancers are not identified on mammography. A negative report may reinforce clinical impression. Adenosis and dense breasts may obscure an underlying neoplasm. False positive reports average 6 to 10%. Patient will receive a letter notifying them of these results.
== END ==
PROVIDERS: PCP Nurse Practitioner Family; Visit Provider Nurse Practitioner Family
DX: Z12.31 Encounter for screening mammogram for malignant neoplasm of breast (principal)
CPT/HCPCS: 77063; 77067

== ENCOUNTER 2022-04-12 03:03 | Outpatient (CLI) | payer MEDICARE, BC, SELFPAY ==
[2022-04-12 12:53] LABS: Anion Gap 6.6 mmol/L (3-11); BUN 10 mg/dL (7-18); CO2 29.4 mmol/L (21.0-32.0); CREATININE 1.1 mg/dL (0.55-1.02); Calculated LDL 219 mg/dL (<100); Chloride 103 mmol/L (98-107); Cholesterol 310 mg/dL (<200); Estimated GFR 53.06 (mL/min/1.73m2); Glucose 94 mg/dL (74-106); HDL Cholesterol 73 mg/dL (40-60); Sodium 139 mmol/L (136-145); Triglyceride 90 mg/dL (<150)
== END 2022-04-12 03:04 | disposition home or self-care (01) ==
LOC: LBO 03:03
PROVIDERS: PCP Nurse Practitioner Family; Visit Provider Nurse Practitioner Family
DX: E78.5 Hyperlipidemia, unspecified (principal); K90.41 Non-celiac gluten sensitivity
CPT/HCPCS: 36415; 80048; 80061

== ENCOUNTER 2022-08-20 00:39 | Outpatient (CLI) | payer MEDICARE, BC, SELFPAY ==
--- NOTE | 2022-08-20 | DI.DEXA_ITS ---
Exam(s) XR DEXA BONE DENSITY W/WO CRISPIN EXAM: XR DEXA BONE DENSITY W/WO CRISPIN CLINICAL HISTORY: SCREENING FOR OSTEOPOROSIS, Z13.820, ASYMPTOMATIC MENOPAUSAL STATE, Z78.0 TECHNIQUE: COMPARISON: Comparison is 08/19/2015. FINDINGS: Lateral Spine Image: Unremarkable. No compression deformities identified. Left hip: Total T-Score: -2.1. This compares to -1.5 on the prior examination. Total Z-Score: -0.4 T- and Z-scores: Findings are consistent with osteopenia. Lumbar Spine: Total T-Score: -1.7. This compares to -2.5 on the prior examination. Total Z-Score: 0.6 T- and Z-scores: Findings are consistent with osteopenia. IMPRESSION: Osteopenia in the lumbar spine and left hip.
== END 2022-08-20 00:59 ==
LOC: DI 00:40
PROVIDERS: PCP Nurse Practitioner Family; Visit Provider Naturopath
DX: M85.88 Other specified disorders of bone density and structure, other site (principal); Z78.0 Asymptomatic menopausal state
CPT/HCPCS: 77080

== ENCOUNTER 2022-12-01 02:42 | Outpatient (CLI) | payer MEDICARE, BC, SELFPAY ==
[2022-12-01 10:46] LABS: Abs Immature Grans 0.01 10^3/uL (0.0-0.06); Absolute Basophil Count 0.03 10^3/uL (0.0-0.2); Absolute Eosinophil Count 0.11 10^3/uL (0.0-0.7); Absolute Lymphocyte Count 1.04 10^3/uL (1.2-3.4); Absolute Monocyte Count 0.43 10^3/uL (0.1-0.8); Absolute Neutrophil Count 2.59 10^3/uL (1.2-6.7); Basophils % 0.7; Eosinophils % 2.6; HCT 39.6 % (36.0-46.0); HGB 13.3 g/dL (11.2-15.7); Immature Grans % 0.2; Lymphocytes % 24.7; MCH 33.6 pg (27.0-33.0); MCHC 33.6 % (32.0-36.0); MCV 100 fL (80-95); MPV 11.1 fL (8.0-11.0); Monocytes % 10.2; Neutrophils % 61.6; Platelet Count 288 10^3/uL (130-400); RBC 3.96 10^6/uL (3.93-5.22); RDW 12.4 % (11.7-14.6); RDW-SD 45.8 fL; WBC 4.21 10^3/uL (4.4-10.8)
[2022-12-01 11:10] LABS: ALT 22 U/L (14-59); AST 18 U/L (15-37); Albumin 3.4 g/dL (3.4-5.0); Alkaline Phosphatase 105 U/L (46-116); Anion Gap 6.6 mmol/L (3-11); BUN 12 mg/dL (7-18); Bilirubin, Total 0.5 mg/dL (0.2-1.0); CO2 29.4 mmol/L (21.0-32.0); CREATININE 0.9 mg/dL (0.55-1.02); Calcium 8.7 mg/dL (8.5-10.1); Calculated LDL 172 mg/dL (<100); Chloride 107 mmol/L (98-107); Cholesterol 270 mg/dL (<200); Glucose 99 mg/dL (74-106); HDL Cholesterol 67 mg/dL (40-60); Sodium 143 mmol/L (136-145); Triglyceride 158 mg/dL (<150)
[2022-12-01 11:56] LABS: C-Reactive Protein 0.26 mg/dL (0.0-0.3)
[2022-12-01 18:49] LABS: Parathyroid Hormone,Intact 75 pg/mL (19-88)
[2022-12-02 17:34] LABS: Apolipoprotein A1 169 mg/dL (>=140)
[2022-12-03 08:54] LABS: Apolipoprotein B, S 130 mg/dL
[2022-12-06 10:51] LABS: 25-Hydroxy D Total 56 ng/mL; 25-Hydroxy D2 <4.0 ng/mL; 25-Hydroxy D3 56 ng/mL
== END 2022-12-01 02:43 | disposition home or self-care (01) ==
LOC: LOS 02:42
PROVIDERS: PCP Nurse Practitioner Family; Visit Provider Naturopath
DX: Z13.220 Encounter for screening for lipoid disorders (principal); M85.80 Other specified disorders of bone density and structure, unspecified site; E78.00 Pure hypercholesterolemia, unspecified; E55.9 Vitamin D deficiency, unspecified; N39.3 Stress incontinence (female) (male); K21.9 Gastro-esophageal reflux disease without esophagitis; J45.30 Mild persistent asthma, uncomplicated; R42 Dizziness and giddiness; D50.9 Iron deficiency anemia, unspecified
CPT/HCPCS: 36415; 80053; 80061; 82172; 82306; 82652; 83970; 85025; 86140

== ENCOUNTER 2023-03-24 01:30 | Outpatient (CLI) | payer MEDICARE, BC, SELFPAY ==
--- NOTE | 2023-03-24 06:45 | DI.RAD_ITS ---
Exam(s) XR CHEST 2V PA LATERAL EXAM: XR CHEST 2V PA LATERAL CLINICAL HISTORY: SOB,R06.02 TECHNIQUE: 2D digital imaging was performed of the chest. Two images were obtained. PA and lateral views were obtained. COMPARISON: CR,XR XR CHEST 2V PA LATERAL from 12/31/2020 FINDINGS: MEDIASTINUM: Normal. HEART: Normal. PULMONARY VASCULATURE: Normal. LUNGS: Clear. PLEURAL SPACE: No pleural effusion or pneumothorax. BONE:Within normal limits for the patient's age. OTHER FINDINGS:Normal. IMPRESSION: No acute pulmonary findings. DATA REPOSITORY: RADIATION DOSE DELIVERED:
== END 2023-03-24 01:50 ==
LOC: DI 01:30
PROVIDERS: PCP Nurse Practitioner Family; Visit Provider Nurse Practitioner Family
DX: R06.02 Shortness of breath (principal)
CPT/HCPCS: 71046

== ENCOUNTER 2023-03-25 02:24 | Outpatient (CLI) | payer MEDICARE, BC, SELFPAY ==
[2023-03-25] MEDS: Methacholine 100 MG VIAL IH (12:13)
[2023-03-25] MEDS: Albuterol HFA 18 GM 200 PUFF INH IH (12:13)
[2023-03-25] MEDS: Inhaler, Assist Device 1 EACH MC (12:14)
--- NOTE | 2023-03-28 07:45 | W.PFT ---
Date of service: 03/25/23 Time of Service: 10:02 Pulmonary Function Test Result Indications: Dyspnea Interpretation Spirometry: There is no airflow limitation. There was a 15% decrease in FEV1 with administration of 16mg/mL methacholine. Lung Volumes: Normal lung volumes Diffusion Capacity: Normal diffusion Airway Pressure: Normal airways resistance Impression Normal pulmonary function. Negative methacholine challenge Clinical Correlation therefore is recommended.
== END 2023-03-25 02:25 | disposition home or self-care (01) ==
LOC: RT 02:24
PROVIDERS: PCP Nurse Practitioner Family; Visit Provider Nurse Practitioner Family
DX: R06.02 Shortness of breath (principal)
CPT/HCPCS: 94060; 94070; 94726; 94729; 94010; J7674

== ENCOUNTER 2023-04-11 01:01 | Outpatient (CLI) | payer MEDICARE, BC, SELFPAY ==
[2023-04-12 09:47] LABS: Hepatitis C Ab w Rflx HCV PCR Negative (Negative)
== END 2023-04-11 01:02 | disposition home or self-care (01) ==
PROVIDERS: PCP Nurse Practitioner Family; Visit Provider Nurse Practitioner Family
DX: Z00.00 Encounter for general adult medical examination without abnormal findings (principal); Z11.59 Encounter for screening for other viral diseases
CPT/HCPCS: 36415; 86803

== ENCOUNTER → 2023-04-21 02:24 | Outpatient (CLI) | payer MEDICARE, BC, SELFPAY ==
--- NOTE | 2023-04-21 08:00 | DI.MAMMO_ITS ---
Exam(s) MAMMO SCREENING EXAM: MAMMO SCREENING CLINICAL HISTORY: screening,z12.39 TECHNIQUE: Mammograms were interpreted according to the usual protocol including computer analysis w [employer] CAD system, tomosynthesis and C-view imaging. COMPARISON: 2013 through 2021 FINDINGS: The breasts are composed of mainly fatty density , Breast Density category A. No suspicious masses or suspicious microcalcifications are seen. No skin thickening or abnormal axillary lymph nodes are seen. There has been no significant change from prior exams. IMPRESSION: BI-RADS Category 1, Negative mammogram Yearly screening mammography is recommended. Breast Density - Category A, fatty density. A negative radiographic report should not delay biopsy if a dominant or clinically suspicious mass is present. Up to ten percent of cancers are not identified on mammography. A negative report may reinforce clinical impression. Adenosis and dense breasts may obscure an underlying neoplasm. False positive reports average 6 to 10%. Patient will receive a letter notifying them of these results.
== END ==
PROVIDERS: PCP Nurse Practitioner Family; Visit Provider Nurse Practitioner Family
DX: Z12.31 Encounter for screening mammogram for malignant neoplasm of breast (principal); R92.313 Mammographic fatty tissue density, bilateral breasts
CPT/HCPCS: 77063; 77067

== ENCOUNTER 2023-10-20 12:22 | Outpatient (REF) | payer MEDICARE, BC, SELFPAY ==
--- NOTE | 2023-10-20 10:20 | SKI_PTH ---
PATIENT: Lnida Hoffmann LOC: [facility] U#:[id number] AGE/SX: 73/F ROOM: RE10/20/[address]: Danni Lunsford NP : [id number] BED: DIS: 10/20/2023 SPEC #: [id number] RECD: 10/20/23 12:58 STATUS: CANDICE REYisel #: [id number] JENA: 10/20/23 10:[address]: Danni Lunsford DEPT: Surgical Specimen RECD BY: Jacquelin Fontaine ENTERED: 10/20/23 12:59 SP TYPE: LUCY HUERTA DR: RIMMA Galvez Tissues: 1 - SKIN BIOPSY(SHAVE/PUNCH) Procedures: SKIN LEVEL 4 Comments: [id number]
== END 2023-10-20 12:23 | disposition home or self-care (01) ==
LOC: LBN 12:22
PROVIDERS: PCP Nurse Practitioner Family; Visit Provider Nurse Practitioner Family
DX: Z85.828 Personal history of other malignant neoplasm of skin; L43.8 Other lichen planus
CPT/HCPCS: 88305

== ENCOUNTER 2023-12-24 17:58 | Emergency (ER) | payer MEDICARE, BC, SELFPAY ==
[2023-12-24] VITALS (25 sets, daily range): BP systolic 169–196; BP diastolic 64–86; PULSE 76–113; RESP 8–29; TEMP 36.1–37.1; O2SAT 96–97
--- NOTE | 2023-12-24 18:00 | RT.EKG_ITS ---
APPROVED REPORT Exam: Resting ECG Reason for Exam: High blood pressure Patient Location: E HR:106 bpm ECG Measurements Heart Rate 106 AXIS WV 198 P 50 QRSd 92 QRS 15 QT 338 T 27 QTc 448 Conclusion Sinus tachycardia...rate> 99
--- NOTE | 2023-12-24 18:21 | ED.GENADUL_ITS ---
Discharge Plan Disposition Patient Disposition: Home Condition: Stable Discharge Details Clinical Impression: Shortness of breath, Hypertension Primary Care Provider: Pratibha Luke ED Provider: Aquiles Greenberg Home Meds and New Rx's Prescriptions: New amlodipine 5 mg tablet 5 mg PO DAILY Qty: 30 0RF Continued bergamot extract 500 mg capsule PO cholecalciferol (vitamin D3) 25 mcg (1,000 unit) capsule 25 mcg PO DAILY (DME) Aerochamber Plus Flow-Vu Spacer 1 ea Miscellaneous Q4H PRN Qty: 1 0RF Rx Instructions: use daily prn omeprazole 20 mg capsule,delayed release(DR/EC) 20 mg PO DAILY PRN (Reason: heartburn) Qty: 90 4RF alge calcium plus 120 mg PO .COMPLEX Rx Instructions: 120 mg orally; poligugul complex capsule 900 mg PO albuterol sulfate [Proventil HFA] 90 mcg/actuation HFA aerosol inhaler 2 puff inhalation Q6H PRN (Reason: shortness of breath or wheezing) Qty: 18 4RF Discharge Instructions Additional Instructions: Your blood work and CAT scan did not show any concerning findings at this time. Follow-up with your primary care provider within 1 to 2 weeks and discuss if you should continue the amlodipine or switch to a different medication If you feel more ill, develop severe chest pain or severe headaches return to the emergency department for reevaluation HPI General Mode of arrival: ambulatory . Date/Time Provider Initiated Documentation: 12/24/23 17:59 . Limitations to Documentation: no limitations . Information obtained by: patient . History of Present Illness 73 year old F presents to the emergency department with the chief complaint of high bp, sonia cribed as moderate, Patient started experiencing this day(s) (1) and it has been constant. No relieving factors improve symptom(s), No exacerbating factors reported . Patient notes shortness of breath; denies chest pain and fever/chills. Patient did receive the following treatments prior to arrival, none Related Data Home Medications ?Medication ?Instructions ?Recorded ?Confirmed inhalational spacing device #1 unit 06/30/20 09/30/23 (Aerochamber Plus Flow-Vu) omeprazole 20 mg capsule,delayed 20 mg PO DAILY PRN heartburn #90 02/12/21 09/30/23 release caps alge calcium plus 120 mg PO .COMPLEX 12/15/21 09/30/23 poligugul complex 900 mg PO 12/15/21 09/30/23 albuterol sulfate 90 mcg/actuation 2 puff inhalation Q6H PRN 08/19/22 09/30/23 aerosol inhaler (Proventil HFA) shortness of breath or wheezing #18 grams bergamot extract 500 mg capsule cap PO Lower cholesterol 03/23/23 09/30/23 cholecalciferol (vitamin D3) 25 25 mcg PO DAILY 03/23/23 09/30/23 mcg (1,000 unit) capsule amlodipine 5 mg tablet 5 mg PO DAILY #30 tabs 12/24/23 Previous Rx's ?Medication ?Instructions ?Recorded inhalational spacing device #1 unit 06/30/20 (Aerochamber Plus Flow-Vu) omeprazole 20 mg capsule,delayed 20 mg PO DAILY PRN heartburn #90 02/12/21 release caps albuterol sulfate 90 mcg/actuation 2 puff inhalation Q6H PRN 08/19/22 aerosol inhaler (Proventil HFA) shortness of breath or wheezing #18 grams amlodipine 5 mg tablet 5 mg PO DAILY #30 tabs 12/24/23 Allergies Allergy/AdvReac Type Severity Reaction Status Date / Time pravastatin AdvReac Intermediate ARTHRALGIAS Verified 12/24/23 18:13 atorvastatin AdvReac Mild muscle Verified 12/24/23 18:13 aches [id number] Reductase AdvReac Mild swelling/my Verified 12/24/23 18:13 Inhibitor (Wjthyjz-Dft-Mrn algias Reductase Inhibitor) General Stated Complaint: Dizzy/Sync CATHY: 3 Review of Systems All systems reviewed & are unremarkable except as noted in HPI and below Constitutional Constitutional: Denies chills, Denies fever(s) and Denies weakness Cardiovascular Cardiovascular: Denies chest pain and Reports dyspnea Respiratory Respiratory: Denies cough and Reports dyspnea Gastrointestinal Gastrointestinal: Denies abdominal pain, Denies nausea and Denies vomiting Musculoskeletal Musculoskeletal: Denies joint swelling Neurologic Neurologic: Denies weakness Exam Const General: no acute distress Orientation: alert [facility] Head: normal to inspection Ears: external ears normal General nose exam: external nose normal Mouth: moist mucous membranes Eyes General: appearance normal, both eyes and all related structures Neck Neck: normal visual inspection Resp Effort & Inspection: normal respiratory effort and able to speak in complete sentences Auscultation: clear to auscultation bilaterally Cardio Jugular venous pressure: no JVD Rate: regular rate Heart Sounds: no murmurs Skin General skin exam: no rashes or lesions noted Neuro General: patient alert and patient oriented x3 Extrem General: normal to inspection Psych Mental Status: mental status grossly normal Course Vital Signs Vital signs: Vital Signs Temperature 37.1 C 12/24/23 18:04 Pulse 109 H 12/24/23 18:04 Respiratory Rate 10 L 12/24/23 18:04 Blood Pressure 196/76 H 12/24/23 18:04 Pulse Oximetry 96 12/24/23 18:04 Temperature 37.1 C 12/24/23 18:04 Temperature Source Skin 12/24/23 18:04 Pulse 109 H 12/24/23 18:04 Respiratory Rate 10 L 12/24/23 18:04 Blood Pressure 196/76 H 12/24/23 18:04 Pulse Oximetry 96 12/24/23 18:04 Oxygen Delivery Method Room Air 12/24/23 18:04 Oxygen Flow Rate 0 12/24/23 18:04 Pain Level 0 12/24/23 18:04 Medical Decision Making 73-year-old female with a history of hyperlipidemia, GERD no prior history of hypertension comes in with complaints of her blood pressure being high. She was at a parade and there was a tent set up for people to get a blood pressure check and hers was in the 150 systolic, she says it started making her anxious and felt short of breath. She checked at home and was tired so she came here. She has noted to be hypertensive in the 190 systolic. She denies any headaches, weakness, fevers, chest pain, abdominal pain. She does note some mild shortness of breath when she takes deep breath then. She speaking in full sentences in no distress, she has no JVD, no leg swelling or calf tenderness, soft nontender abdomen. She has no murmurs and her lung sounds are clear. She has no focal deficits. Suspect she has underlying hypertension with some anxiety, but given her shortness of breath and mild tachycardia here will obtain CBC, CMP, troponin, CT of the chest to evaluate for PE. Will provide a small dose of ativan for her anxiety while testing is pending Labs and imaging unremarkable and patient now asymptomatic and feels better after she had a dose of Ativan. Her blood pressure is still consistently 180 systolic. Discussed starting meds here and she would like to do this and follow-up with her PCP. Will start on amlodipine and have her follow-up with her PCP return precautions given Differential Diagnosis Differential Diagnosis: PE, hypertension, anxiety Imaging Data Radiologic Study: Attestation: I personally reviewed and interpreted this imaging study as follows: Imaging: CT Scan Radiologist's impression: No acute findings Lab Data Lab results reviewed: Yes I reviewed the patient's lab results. ECG Data Attestation: I personally reviewed and interpreted this ECG (s) as follows: Prior ECG tracings: available for review Interpretation: Sinus tachycardia, rate of 106, NH 198, no STEMI Quality:SDOH Health Related Social Needs: No Data to Display PFSH All Active Problems (Updated 12/24/23 @ 20:46 by Aquiles Greenberg MD) Hypertension (Chronic) Shortness of breath (Acute) Bilateral carpal tunnel syndrome (Acute) Shortness of breath (Chronic) Osteoporosis (Chronic) Declines therapy Hyperlipidemia (Chronic) Declines pharmacotherapy, [facility] lipid clinic consult GERD (gastroesophageal reflux disease) (Chronic) Gluten intolerance (Chronic) Degenerative joint disease of right knee (Chronic) Vitamin D deficiency (Chronic) Mixed incontinence (Chronic) She may consider urology consult in the future Medical History Folate deficiency Macrocytosis without anemia Surgical History S/P tonsillectomy S/P tubal ligation S/P colonoscopy Family History Mother , 62 Asthma Emphysema lung Father , 68 from lung cancer Lung cancer Throat cancer Sister Parkinsons disease Brother Hyperlipidemia Brother , from [place] Heart disease Hyperlipidemia Myocardial infarction Brother , 76 from aspiration Diabetes Hyperlipidemia Brother , 25 of [place] Myocardial infarction Congenital heart disease Brother Diabetes Hyperlipidemia Son No problems noted. Daughter No problems noted. Maternal Grandfather , age 71 Heart disease Diabetes Paternal Grandfather , age 67 Heart disease Myocardial infarction Maternal Grandmother , age 78 Breast cancer Stomach cancer Paternal Grandmother , age 86 Heart disease Hypertension Myocardial infarction Social History Smoking/Tobacco Use Status: Never Second Hand Exposure: Yes Smoking risk assessment performed?: Yes Alcohol Intake: never Drug use: Never Substance use type: does not use Household members: spouse Housing: house Communication Needs: None Pets and animals: Yes Pets and animals: cat(s) and dog(s) Sexually active: No Do you think of yourself as: straight/heterosexual Current gender identity: female What is your relationship status?: How often do you talk on the phone with friends or family?: three or more times per week How often do you get together with friends or relatives?: twice per week How often do you attend episcopalian or protestant services?: decline to answer Do you belong to any clubs or organized social groups?: yes Panel score (0-1 are the most socially isolated patients): 3 What type of physical activity do you participate in: walking Duration: 30-45 minutes/day Frequency: 3-4 times per week Amy/Mandaeism: Jewish Special amy needs: No Seatbelt use: always Drive intox or ride w/intox crude oil driver: No Do you feel safe at home: Yes Do you feel safe in your relationship?: Yes Victim of physical abuse: No Victim of emotional abuse: No Victim of sexual abuse: No Would you like helpful sources: No
[2023-12-24 18:40] LABS: Abs Immature Grans 0.01 10^3/uL (0.0-0.06); Absolute Basophil Count 0.03 10^3/uL (0.0-0.2); Absolute Eosinophil Count 0.04 10^3/uL (0.0-0.7); Absolute Lymphocyte Count 1.13 10^3/uL (1.2-3.4); Absolute Monocyte Count 0.46 10^3/uL (0.1-0.8); Absolute Neutrophil Count 3.77 10^3/uL (1.2-6.7); Basophils % 0.6 %; Eosinophils % 0.7 %; HCT 38.6 % (36.0-46.0); HGB 13.1 g/dL (11.2-15.7); Immature Grans % 0.2 %; Lymphocytes % 20.8 %; MCH 33.6 pg (27.0-33.0); MCHC 33.9 % (32.0-36.0); MCV 99 fL (80-95); MPV 10.5 fL (8.0-11.0); Monocytes % 8.5 %; Neutrophils % 69.2 %; Platelet Count 271 10^3/uL (130-400); RDW 12.6 % (11.7-14.6); RDW-SD 45.4 fL; WBC 5.44 10^3/uL (4.4-10.8)
[2023-12-24] MEDS: Normal Saline Flush 10 ML SYR IVP ×2 (18:41→20:50)
[2023-12-24] MEDS: Normal Saline 1,000 ML 1000 ML IV (18:41)
[2023-12-24 19:03] LABS: ALT 27 U/L (14-59); AST 21 U/L (15-37); Albumin 3.5 g/dL (3.4-5.0); Alkaline Phosphatase 93 U/L (46-116); Anion Gap 9.1 mmol/L (3-11); BUN 10 mg/dL (7-18); CO2 26.9 mmol/L (21.0-32.0); Calcium 8.8 mg/dL (8.5-10.1); Chloride 107 mmol/L (98-107); Estimated GFR 59.12 (mL/min/1.73m2); Glucose 104 mg/dL (74-106); Magnesium 1.8 mg/dL (1.8-2.4); Potassium 3.8 mmol/L (3.5-5.1); Sodium 143 mmol/L (136-145); Total Protein 6.9 g/dL (6.4-8.2); Troponin I < 50 ng/L (< or =60)
[2023-12-24] MEDS: LORazepam 2 MG/ML VIAL 0.5 MG IVP (19:08)
[2023-12-24 19:11] LABS: PTT Activated 24.7 sec (23.6-32.8); Prothrombin Time 10.1 sec (9.1-11.1)
[2023-12-24] MEDS: Omnipaque 350 MG/ML 100 ML BTL IJ (19:22)
[2023-12-24] MEDS: Normal Saline - Diluent 50 ML VIAL IJ (19:23)
--- NOTE | 2023-12-24 19:25 | DI.CT_ITS ---
Exam(s) CT CHEST PE CTA EXAM: CT CHEST PE CTA CLINICAL HISTORY: dyspnea, tachycardia, ?PE. TECHNIQUE: Imaging Protocol: CT angiography of the chest was performed using pulmonary embolus deanne col. Multi planar reconstructions were performed. CONTRAST MATERIAL: Intravenous: Omnipaque 350 Contrast volume: 100 cc COMPARISON: CT,NM,TMT NM MPI REST STRESS GRP from 01/05/2021 FINDINGS: CHEST: PULMONARY ARTERIES: There are no intraluminal filling defects to suggest acute pulmonary emboli. LUNGS: There are no infiltrates nor evidence of pulmonary infarction.. There are no pleural effusions . MEDIASTINUM: There is no hilar nor mediastinal adenopathy. Visualized thyroid unremarkable. CARDIAC: Heart size is upper normal. There is no pericardial effusion.Caliber of the thoracic aorta is within normal limits. No evidence of dissection. There is no significant shift of the interventri cular septum. PARTIALLY VISUALIZED UPPERMOST ABDOMEN: 2 cm hypodensity in left hepatic lobe noted which is probably a benign cyst. OSSEOUS: No significant osseous lesions.. IMPRESSION: 1. No evidence of acute pulmonary emboli. No evidence of pulmonary infarction.No pleural effusions. 2. No evidence of pulmonary infiltrates nor intrathoracic adenopathy. 3. Incidental 2 cm cyst noted in the liver. RADIATION DOSE DELIVERED: Total DLP DATA REPOSITORY: All CT scans at this facility are submitted to the National Radiology Data Registry (NRDR) Dose Index Registry (DIR) with the [employer] (A[employer]). RADIATION OPTIMIZATION: All CT scans at this facility use at least one of these dose optimization te chniques: automated exposure control; mA and/or kV adjustment per patient size (includes targeted exa ms where dose is matched to clinical indication); or iterative reconstruction.
--- NOTE | 2023-12-24 20:30 | DI.VRAD_ITS ---
PROCEDURE INFORMATION: Exam: CTA Chest With Contrast Exam date and time: 12/24/2023 7:19 PM Age: 73 years old Clinical indication: Dyspnea and tachypnea; Patient HX: Dyspena, tachycardia, ? pe TECHNIQUE: Imaging protocol: Computed tomographic angiography of the chest with contrast. Exam focused on the arteries. 3D rendering (Not supervised by radiologist): MIP and/or 3D reconstructed images were created by the technologist. Radiation optimization: All CT scans at this facility use at least one of these dose optimization techniques: automated exposure control; mA and/or kV adjustment per patient size (includes targeted exams where dose is matched to clinical indication); or iterative reconstruction. Contrast material: [id number]; Contrast volume: 100 ml; Contrast route: INTRAVENOUS (IV); COMPARISON: CR XR CHEST 2V PA LATERAL 03/24/2023 7:55 AM FINDINGS: Pulmonary arteries: Normal. No pulmonary emboli. Aorta: Unremarkable. No aortic aneurysm. No aortic dissection. Lungs: Unremarkable. No consolidation. No masses. Pleural spaces: Unremarkable. No pneumothorax. No pleural effusion. Heart: Unremarkable. No cardiomegaly. No pericardial effusion. Lymph nodes: Unremarkable. No enlarged lymph nodes. Diaphragm: There is a small hiatal hernia. Liver: There is a 1.9 x 1.4 cm hypodense lesion in the left lobe of the liver, probably cyst Bones/joints: There is a focal mild loss of height of anterior superior endplate of T12, probably Schmorl's node.. Soft tissues: Unremarkable. IMPRESSION: 1. No pulmonary embolism or aortic dissection. 2. No acute pulmonary process. Dictated and Authenticated by: Haroldo Davison MD. Ordering:FARHAN Kwan MD
[2023-12-24] MEDS: amLODIPine 5 MG TAB PO (20:47)
== END 2023-12-24 20:55 | disposition home or self-care (01) ==
PROVIDERS: Emergency Provider Emergency Medicine; PCP Nurse Practitioner Family
DX: R06.02 Shortness of breath (principal); R42 Dizziness and giddiness; R03.0 Elevated blood-pressure reading, without diagnosis of hypertension
CPT/HCPCS: 36415; 71275; 80053; 93005; 96361; 96374; 99285; 83735; 84484; 85025; 85610; 85730; 93010; 99283; J2060; J3490

== ENCOUNTER 2024-05-07 11:03 | Outpatient (CLI) | payer MEDICARE, BC, SELFPAY ==
[2024-05-07 12:23] LABS: HCT 40.2 % (36.0-46.0); HGB 13.4 g/dL (11.2-15.7); MCH 33.6 pg (27.0-33.0); MCHC 33.3 % (32.0-36.0); MCV 101 fL (80-95); MPV 11.1 fL (8.0-11.0); Platelet Count 279 10^3/uL (130-400); RBC 3.99 10^6/uL (3.93-5.22); RDW 12.8 % (11.7-14.6); RDW-SD 47.6 fL; WBC 5.36 10^3/uL (4.4-10.8)
[2024-05-07 12:42] LABS: Hemoglobin A1C 5.6 % (<5.7)
[2024-05-07 12:59] LABS: Anion Gap 7.5 mmol/L (3-11); BUN 14 mg/dL (7-18); CO2 28.5 mmol/L (21.0-32.0); CREATININE 1.1 mg/dL (0.55-1.02); Calcium 9.3 mg/dL (8.5-10.1); Chloride 107 mmol/L (98-107); Glucose 97 mg/dL (74-106); Potassium 3.9 mmol/L (3.5-5.1); Sodium 143 mmol/L (136-145); Vitamin D 25 Total 41.1 ng/mL (30-100)
[2024-05-07 18:44] LABS: HIV-1/2 Ag & Ab Screen Negative (Negative)
[2024-05-07 18:45] LABS: HBs Antibody, Quant <3.1 mIU/mL (See Note); Hep B Surface Ab Negative (See Note); Hepatitis B Core Antibody Negative (Negative); Hepatitis B Surface Antigen Negative (Negative)
== END 2024-05-07 11:04 | disposition home or self-care (01) ==
LOC: LOS 11:03
PROVIDERS: PCP Nurse Practitioner Family; Referring Provider Nurse Practitioner Family; Visit Provider Nurse Practitioner Family
DX: R73.01 Impaired fasting glucose (principal); Z00.00 Encounter for general adult medical examination without abnormal findings; E55.9 Vitamin D deficiency, unspecified; D75.89 Other specified diseases of blood and blood-forming organs; Z11.59 Encounter for screening for other viral diseases; Z11.4 Encounter for screening for human immunodeficiency virus [HIV]
CPT/HCPCS: 36415; 80048; 82306; 85027; 86704; 86706; 87340; 87389; 83036

== ENCOUNTER 2024-07-05 04:48 | Outpatient (CLI) | payer MEDICARE, BC, SELFPAY ==
[2024-07-05 13:02] LABS: BUN 14 mg/dL (7-18); CREATININE 1.2 mg/dL (0.55-1.02); Calcium 9.2 mg/dL (8.5-10.1); Calculated LDL 225 mg/dL (<100); Chloride 106 mmol/L (98-107); Cholesterol 323 mg/dL (<200); Estimated GFR 47.21 (mL/min/1.73m2); Glucose 91 mg/dL (74-106); HDL Cholesterol 75 mg/dL (40-60); Potassium 3.8 mmol/L (3.5-5.1); Sodium 144 mmol/L (136-145); Triglyceride 115 mg/dL (<150)
[2024-07-06 19:02] LABS: Apolipoprotein A1 186 mg/dL (>=140)
[2024-07-07 13:31] LABS: Apolipoprotein B, S 159 mg/dL
== END 2024-07-05 04:49 | disposition home or self-care (01) ==
LOC: LOS 04:49
PROVIDERS: PCP Nurse Practitioner Family; Visit Provider Naturopath
DX: E78.00 Pure hypercholesterolemia, unspecified (principal); M85.80 Other specified disorders of bone density and structure, unspecified site; N39.3 Stress incontinence (female) (male); K21.9 Gastro-esophageal reflux disease without esophagitis; J45.30 Mild persistent asthma, uncomplicated; E55.9 Vitamin D deficiency, unspecified; R42 Dizziness and giddiness; Z13.220 Encounter for screening for lipoid disorders; D50.9 Iron deficiency anemia, unspecified
CPT/HCPCS: 36415; 80048; 80061; 82172

== ENCOUNTER 2024-07-07 09:15 | Outpatient (REF) | payer MEDICARE, BC, SELFPAY ==
[2024-07-07 11:19] LABS: Creatinine,Urine 163.23 mg/dL
[2024-07-07 11:22] LABS: Creatinine,24hr Ur 0.82 g/24hr (0.60-1.80); Total Volume 500 ml
== END 2024-07-07 09:16 | disposition home or self-care (01) ==
LOC: LBN 09:15
PROVIDERS: PCP Nurse Practitioner Family; Visit Provider Naturopath
DX: E78.00 Pure hypercholesterolemia, unspecified (principal); N39.0 Urinary tract infection, site not specified; K21.9 Gastro-esophageal reflux disease without esophagitis; E55.9 Vitamin D deficiency, unspecified; Z13.220 Encounter for screening for lipoid disorders
CPT/HCPCS: 81050; 82570

== ENCOUNTER 2024-08-06 11:00 | Outpatient (CLI) | payer MEDICARE, BC, SELFPAY ==
[2024-08-06 14:00] LABS: Anion Gap 8.5 mmol/L (3-11); BUN 16 mg/dL (7-18); CO2 29.5 mmol/L (21.0-32.0); CREATININE 1.1 mg/dL (0.55-1.02); Calcium 9.4 mg/dL (8.5-10.1); Chloride 105 mmol/L (98-107); Glucose 95 mg/dL (74-106); Potassium 4.5 mmol/L (3.5-5.1); Sodium 143 mmol/L (136-145)
== END 2024-08-06 11:01 | disposition home or self-care (01) ==
LOC: LOS 11:00
PROVIDERS: PCP Nurse Practitioner Family; Referring Provider Nurse Practitioner Family; Visit Provider Nurse Practitioner Family
DX: I10 Essential (primary) hypertension (principal); N18.30 Chronic kidney disease, stage 3 unspecified
CPT/HCPCS: 36415; 80048

== ENCOUNTER 2024-10-01 16:51 | Outpatient (REF) | payer MEDICARE, BC, SELFPAY ==
[2024-10-01 15:05] LABS: Bilirubin Negative (Negative); Blood Negative (Negative); Clarity Clear (Clear); Glucose Negative (Negative); Ketones Negative (Negative); Leukocyte Esterase Negative (Negative); Nitrite Negative (Negative); Urobilinogen 0.2 mg/dL (Up to 0.2)
[2024-10-01 16:27] LABS: COMMENT (LAB VIEW ONLY) 39.69 mg/dL; Microalb ug/mg Crea 6.8 ug/mg Cr
== END 2024-10-01 16:52 | disposition home or self-care (01) ==
LOC: LBN 16:51
PROVIDERS: PCP Nurse Practitioner Family; Visit Provider Nurse Practitioner Family
DX: N18.30 Chronic kidney disease, stage 3 unspecified (principal)
CPT/HCPCS: 81003; 82043; 82570

== ENCOUNTER 2024-11-11 07:27 | Emergency (ER) | payer MEDICARE, BC, SELFPAY ==
[2024-11-11] VITALS (12 sets, daily range): BP systolic 132–178; BP diastolic 48–85; PULSE 73–103; RESP 13–19; TEMP 36.6; O2SAT 90–100
--- NOTE | 2024-11-11 07:30 | DI.CT_ITS ---
Exam(s) CT ABDOMEN PELVIS CTA EXAM: CT ABDOMEN PELVIS CTA CLINICAL HISTORY: lower abdominal pain, bloody stools. TECHNIQUE: Imaging Protocol: Axial CT angiography was performed with multi-slice acquisition and m ulti-planar and/or 3D reconstructions. CONTRAST MATERIAL: Intravenous: Omnipaque 350 Contrast volume:100mL Oral: No COMPARISON: CT CT CHEST PE CTA from 12/24/2023 FINDINGS: ABDOMEN AND PELVIS: Abdomen: Celiac axis/mesenteric arteries: No evidence of occlusion or significant stenosis. Renal Arteries: No evidence of occlusion or significant stenosis. Mild atherosclerotic calcification is seen at the origin of the right renal artery. Aorta: No evidence of occlusion or significant stenosis. No aneurysm or dissection. Atherosclerotic calcification is present. Pelvis: Iliac Arteries: No evidence of occlusion or significant stenosis. Atherosclerotic calcification is p resent. Common Femoral Arteries: No evidence of occlusion or significant stenosis. ABDOMEN: Lung bases: Unremarkable. Liver: Normal density. There is a stable cyst in the left lobe of the liver. There are few small hyp odensity seen in the liver. They are too small for further characterization but likely reflect small cysts. Portal, Superior Mesenteric, and Splenic Veins: Unremarkable. Gallbladder and Biliary Tract: There is a gallstone seen on the noncontrast examination. No biliary ductal dilatation is present. Pancreas: Normal density, no abnormal calcifications or inflammatory process. Spleen: There is a hypodensity in the medial aspect of the spleen. This may represent a cyst or idalia ngioma. Adrenals: No masses seen. Kidneys: Normal size, contour and axis. No radiodense stones or obstructive uropathy. No masses seen. Bowel: There is diverticulosis seen in the sigmoid colon. There is bowel wall thickening and pericol onic inflammation seen in the descending colon. There are few diverticula seen in the distal descend ing colon. While this may represent acute diverticulitis infectious/inflammatory colitis should also be considered. There is no evidence of bowel obstruction. No evidence of appendicitis. Stomach is incompletely distended limiting evaluation. No evidence of active contrast extravasation. Peritoneal Cavity: No ascites, collection or mesenteric inflammatory response. No free air. Lymph Nodes: Within normal limits. Bones: Age-appropriate degenerative changes are seen throughout the lumbar spine. There is grade 1 a nterolisthesis of L5 on S1. Soft Tissues: Unremarkable. PELVIS: Bladder: The urinary bladder is incompletely distended limiting evaluation. No gross abnormality is identified. Reproductive Organs: Unremarkable as visualized. Lymph Nodes: Within normal limits. Bones: Within normal limits. IMPRESSION: 1. Bowel wall thickening seen in the descending colon with pericolonic inflammation consistent with c olitis. This may represent an infectious or inflammatory colitis. There are few diverticula seen di stally, however the majority of the diverticular seen in the sigmoid colon. Acute diverticulitis can not be excluded. No abscess or free air. 2. No evidence of active extravasation in the bowel. 3. No evidence of abdominal aortic aneurysm or dissection. 4. Cholelithiasis. No biliary ductal dilatation. RADIATION DOSE DELIVERED: 946.6mGy.cm Total DLP DATA REPOSITORY: All CT scans at this facility are submitted to the National Radiology Data Registry (NRDR) Dose Index Registry (DIR) with the [employer] (ACR). RADIATION OPTIMIZATION: All CT scans at this facility use at least one of these dose optimization te chniques: automated exposure control; mA and/or kV adjustment per patient size (includes targeted exa ms where dose is matched to clinical indication); or iterative reconstruction.
--- NOTE | 2024-11-11 07:41 | ED.GENADUL_ITS ---
Discharge Plan Disposition Patient Disposition: Home Condition: Stable Discharge Details Clinical Impression: Colitis, Bloody stools, Abdominal pain Primary Care Provider: Pratibha Luke ED Provider: Aquiles Greenberg Home Meds and New Rx's Prescriptions: New amoxicillin-pot clavulanate 875-125 mg tablet 1 tab PO BID Qty: 14 0RF Continued omeprazole 20 mg capsule,delayed release(DR/EC) 20 mg PO DAILY PRN (Reason: heartburn) Qty: 90 3RF lisinopril 10 mg tablet 10 mg PO DAILY Qty: 90 3RF bergamot extract 500 mg capsule PO cholecalciferol (vitamin D3) 25 mcg (1,000 unit) capsule 25 mcg PO DAILY (DME) Aerochamber Plus Flow-Vu Spacer 1 ea Miscellaneous Q4H PRN Qty: 1 0RF Rx Instructions: use daily prn alge calcium plus 120 mg PO .COMPLEX Rx Instructions: 120 mg orally; poligugul complex capsule 900 mg PO albuterol sulfate 90 mcg/actuation HFA aerosol inhaler 2 puff inhalation Q6H PRN (Reason: shortness of breath or wheezing) Qty: 18 4RF citranox PO BID Pure L-Citrulline Powder PO Rx Instructions: 3mg grape seed extract 100 mg capsule 200 mg PO magnesium 250 mg tablet 125 mg PO DAILY Rx Instructions: at lunch Discharge Instructions Additional Instructions: Your CAT scan showed inflammation in your colon. This should improve with antibiotic. If no improvement within a week follow-up with your primary care provider. If you feel significantly more ill, have persistent vomiting or severe worsening pain return to the emergency department for reevaluation HPI General Mode of arrival: ambulatory . Date/Time Provider Initiated Documentation: 11/11/24 07:32 . Limitations to Documentation: no limitations . Information obtained by: patient . History of Present Illness 74 year old F presents to the emergency department with the chief complaint of abdominal pain, diarrhea, blood in stool, described as moderate, and is localized to the abdomen. Patient reports no radiation. Patient started experiencing this day(s) (1) and it has been intermittent. No relieving factors improve symptom(s), No exacerbating factors reported . Patient notes denies chest pain, fever/chills and shortness of breath. Patient did receive the following treatments prior to arrival, none Related Data Home Medications ?Medication ?Instructions ?Recorded ?Confirmed inhalational spacing device #1 unit 06/30/20 08/06/24 (Aerochamber Plus Flow-Vu) alge calcium plus 120 mg PO .COMPLEX 12/15/21 08/06/24 poligugul complex 900 mg PO 12/15/21 08/06/24 bergamot extract 500 mg capsule cap PO Lower cholesterol 03/23/23 07/09/24 cholecalciferol (vitamin D3) 25 25 mcg PO DAILY 03/23/23 08/06/24 mcg (1,000 unit) capsule omeprazole 20 mg capsule,delayed 20 mg PO DAILY PRN heartburn #90 01/13/24 08/06/24 release caps albuterol sulfate 90 mcg/actuation 2 puff inhalation Q6H PRN 04/20/24 08/06/24 aerosol inhaler shortness of breath or wheezing #18 grams citranox PO BID 06/15/24 08/06/24 citrulline (Pure L-Citrulline oral pwd PO 06/15/24 08/06/24 powder) grape seed extract 100 mg capsule 200 mg PO 06/15/24 08/06/24 magnesium 250 mg tablet 125 mg PO DAILY 06/15/24 08/06/24 lisinopril 10 mg tablet 10 mg PO DAILY #90 tabs 07/09/24 08/06/24 amoxicillin 875 mg-potassium 1 tab PO BID #14 tabs 11/11/24 clavulanate 125 mg tablet Previous Rx's ?Medication ?Instructions ?Recorded inhalational spacing device #1 unit 06/30/20 (Aerochamber Plus Flow-Vu) omeprazole 20 mg capsule,delayed 20 mg PO DAILY PRN heartburn #90 01/13/24 release caps albuterol sulfate 90 mcg/actuation 2 puff inhalation Q6H PRN 04/20/24 aerosol inhaler shortness of breath or wheezing #18 grams lisinopril 10 mg tablet 10 mg PO DAILY #90 tabs 07/09/24 amoxicillin 875 mg-potassium 1 tab PO BID #14 tabs 11/11/24 clavulanate 125 mg tablet Allergies Allergy/AdvReac Type Severity Reaction Status Date / Time pravastatin AdvReac Intermediate ARTHRALGIAS Verified 08/06/24 10:32 atorvastatin AdvReac Mild muscle Verified 08/06/24 10:32 aches [id number] Reductase AdvReac Mild swelling/my Verified 08/06/24 10:32 Inhibitor (Eoxdyua-Ryv-Wkv algias Reductase Inhibitor) General Stated Complaint: Abd Prob CATHY: 3 Review of Systems All systems reviewed & are unremarkable except as noted in HPI and below Constitutional Constitutional: Denies chills, Denies fever(s) and Denies weakness Cardiovascular Cardiovascular: Denies chest pain and Denies dyspnea Respiratory Respiratory: Denies cough and Denies dyspnea Gastrointestinal Gastrointestinal: Reports abdominal pain, Reports hematochezia, Reports diarrhea, Denies nausea and Denies vomiting Neurologic Neurologic: Denies weakness Exam Const General: no acute distress Orientation: alert HENMT Head: normal to inspection Ears: external ears normal General nose exam: external nose normal Mouth: moist mucous membranes Eyes General: appearance normal, both eyes and all related structures Neck Neck: normal visual inspection Resp Effort & Inspection: normal respiratory effort and able to speak in complete sentences Cardio Rate: regular rate GI Palpation: soft and tender Skin General skin exam: no rashes or lesions noted Neuro General: patient alert and patient oriented x3 Extrem General: normal to inspection Psych Mental Status: mental status grossly normal Course Vital Signs Vital signs: Vital Signs Temperature 36.6 C 11/11/24 07:30 Pulse 103 H 11/11/24 07:30 Respiratory Rate 18 11/11/24 07:30 Blood Pressure 178/85 H 11/11/24 07:30 Pulse Oximetry 99 11/11/24 07:30 Temperature 36.6 C 11/11/24 07:30 Temperature Source Oral 11/11/24 07:30 Pulse 103 H 11/11/24 07:30 Respiratory Rate 18 11/11/24 07:30 Blood Pressure 178/85 H 11/11/24 07:30 Blood Pressure Position Supine 11/11/24 07:30 Pulse Oximetry 99 11/11/24 07:30 Medical Decision Making 74-year-old female with a history of CKD, hyperlipidemia, hypertension who comes in with 1 day of intermittent lower abdominal pain, diarrhea and this morning had blood in her stools. She denies any high fevers, vomiting, recent travel. No chest pain or difficulty breathing. She is well-appearing on exam. Abdomen is soft and nondistended. She has mild tenderness in the lower quadrants bilaterally without guarding. Given the lower abdominal pain and blood in stools I will proceed with CBC, CMP and lipase and also obtain a CTA of the abdomen pelvis to evaluate for entities such as diverticulitis and see if there is visible source for blood in her stool.` CT shows evidence of colitis and possibly diverticulitis. No active extravasation, no abscess or perforation. Labs unremarkable. Patient is stable and tolerating p.o. Given reassuring workup I feel she is stable for discharge. I will start her on Augmentin and she will follow-up with her PCP if not improving and return precautions given. Differential Diagnosis Differential Diagnosis: Diverticulitis, internal hemorrhoids, colitis Medical Records Medical records reviewed: Yes I reviewed the patient's medical records. Lab Data Lab results reviewed: Yes I reviewed the patient's lab results. Quality:SDOH Health Related Social Needs: No Data to Display PFSH All Active Problems (Updated 11/11/24 @ 09:43 by Aquiles Greenberg MD) Abdominal pain (Acute) Bloody stools (Acute) Colitis (Acute) CKD (chronic kidney disease) stage 3, GFR 30-59 ml/min (Chronic) Hypertension (Chronic) Bilateral carpal tunnel syndrome (Acute) Osteoporosis (Chronic) Declines therapy Hyperlipidemia (Chronic) Declines pharmacotherapy, [facility] [place] GERD (gastroesophageal reflux disease) (Chronic) Gluten intolerance (Chronic) Degenerative joint disease of right knee (Chronic) Vitamin D deficiency (Chronic) Mixed incontinence (Chronic) She may consider urology consult in the future Medical History Folate deficiency Macrocytosis without anemia Surgical History S/P tonsillectomy S/P tubal ligation S/P colonoscopy Family History Mother , 62 Asthma Emphysema lung Father , 68 from lung cancer Lung cancer Throat cancer Sister Parkinsons disease Brother Hyperlipidemia Brother , from [place] Heart disease Hyperlipidemia Myocardial infarction Brother , 76 from aspiration Diabetes Hyperlipidemia Brother , 25 of [place] Myocardial infarction Congenital heart disease Brother Diabetes Hyperlipidemia Son No problems noted. Daughter No problems noted. Maternal Grandfather , age 71 Heart disease Diabetes Paternal Grandfather , age 67 Heart disease Myocardial infarction Maternal Grandmother , age 78 Breast cancer Stomach cancer Paternal Grandmother , age 86 Heart disease Hypertension Myocardial infarction Social History Smoking/Tobacco Use Status: Never Second Hand Exposure: Yes Smoking risk assessment performed?: Yes Alcohol Intake: never Drug use: Never Substance use type: does not use Household members: spouse Housing: house Communication Needs: None Pets and animals: Yes Pets and animals: cat(s) and dog(s) Sexually active: No Do you think of yourself as: straight/heterosexual Current gender identity: female What is your relationship status?: How often do you talk on the phone with friends or family?: three or more times per week How often do you get together with friends or relatives?: twice per week How often do you attend restorationism or scientology services?: decline to answer Do you belong to any clubs or organized social groups?: yes Panel score (0-1 are the most socially isolated patients): 3 What type of physical activity do you participate in: walking Duration: 30-45 minutes/day Frequency: 3-4 times per week Amy/Baptist: Gnosticism Special amy needs: No Seatbelt use: always Drive intox or ride w/intox transfer driver: No Do you feel safe at home: Yes Do you feel safe in your relationship?: Yes Victim of physical abuse: No Victim of emotional abuse: No Victim of sexual abuse: No Would you like helpful sources: No
[2024-11-11] MEDS: ACETAMINOPHEN 1,000 MG/100 ML BAG 100 MG (07:59)
[2024-11-11 08:05] LABS: Abs Immature Grans 0.05 10^3/uL (0.0-0.06); Absolute Basophil Count 0.05 10^3/uL (0.0-0.2); Absolute Eosinophil Count 0.02 10^3/uL (0.0-0.7); Absolute Monocyte Count 0.66 10^3/uL (0.1-0.8); Basophils % 0.5 %; Eosinophils % 0.2 %; HCT 41.1 % (36.0-46.0); HGB 14.1 g/dL (11.2-15.7); Immature Grans % 0.5 %; Lymphocytes % 6.4 %; MCH 34.3 pg (27.0-33.0); MCHC 34.3 % (32.0-36.0); MCV 100 fL (80-95); MPV 10.5 fL (8.0-11.0); Neutrophils % 86.4 %; Platelet Count 262 10^3/uL (130-400); RBC 4.11 10^6/uL (3.93-5.22); RDW 12.1 % (11.7-14.6); RDW-SD 45.1 fL; WBC 10.95 10^3/uL (4.4-10.8)
[2024-11-11 08:11] LABS: Absolute Neutrophil Count 9.46 10^3/uL (1.2-6.7)
[2024-11-11 08:24] LABS: PTT Activated 26.3 sec (20.6-30.2); Prothrombin Time 10.3 sec (9.1-11.1)
[2024-11-11 08:25] LABS: ALT 25 U/L (14-59); AST 22 U/L (15-37); Albumin 3.8 g/dL (3.4-5.0); Alkaline Phosphatase 112 U/L (46-116); Anion Gap 8.9 mmol/L (3-11); BUN 15 mg/dL (7-18); Bilirubin, Total 0.7 mg/dL (0.2-1.0); CO2 27.1 mmol/L (21.0-32.0); CREATININE 1.1 mg/dL (0.55-1.02); Calcium 9.2 mg/dL (8.5-10.1); Chloride 104 mmol/L (98-107); Glucose 121 mg/dL (74-106); Lipase 31 U/L (<78); Magnesium 1.8 mg/dL (1.8-2.4); Potassium 4.5 mmol/L (3.5-5.1); Sodium 140 mmol/L (136-145); Total Protein 7.7 g/dL (6.4-8.2)
[2024-11-11] MEDS: Normal Saline - Diluent 50 ML VIAL IJ (08:32)
[2024-11-11] MEDS: Omnipaque 350 MG/ML 100 ML BTL IJ (08:33)
[2024-11-11] MEDS: LORazepam 20 MG/10 ML VIAL IVP (08:34)
[2024-11-11] MEDS: Amoxicillin 875/Clav. 125 TAB PO (09:49)
== END 2024-11-11 10:09 | disposition home or self-care (01) ==
PROVIDERS: Emergency Provider Emergency Medicine; PCP Nurse Practitioner Family
DX: K52.9 Noninfective gastroenteritis and colitis, unspecified (principal); K92.1 Melena; I12.9 Hypertensive chronic kidney disease with stage 1 through stage 4 chronic kidney disease, or unspecified chronic kidney disease; N18.30 Chronic kidney disease, stage 3 unspecified; E78.5 Hyperlipidemia, unspecified
CPT/HCPCS: 36415; 80053; 83690; 86850; 86900; 86901; 96374; 99285; 74174; 83735; 85025; 85610; 85730; J0131; J2060; J3490

== ENCOUNTER → 2024-11-21 08:19 | Outpatient (BNVA) | payer MEDICARE, BC, SELFPAY | PROVIDERS: PCP Nurse Practitioner Family; Referring Provider Nurse Practitioner Family; Visit Provider Nurse Practitioner Adult Health | DX: R20.2 Paresthesia of skin (principal); I10 Essential (primary) hypertension | CPT/HCPCS: 99215 ==

== ENCOUNTER 2024-12-17 03:13 | Outpatient (CLI) | payer MEDICARE, BC, SELFPAY ==
[2024-12-17 12:43] LABS: Glucose Negative (Negative)
[2024-12-17 13:36] LABS: ALT 30 U/L (14-59); AST 22 U/L (15-37); Albumin 3.7 g/dL (3.4-5.0); Alkaline Phosphatase 102 U/L (46-116); Anion Gap 7.6 mmol/L (3-11); BUN 20 mg/dL (7-18); Bilirubin, Total 0.5 mg/dL (0.2-1.0); CO2 28.4 mmol/L (21.0-32.0); Calcium 9.2 mg/dL (8.5-10.1); Calculated LDL 184 mg/dL (<100); Chloride 105 mmol/L (98-107); Cholesterol 273 mg/dL (<200); Estimated GFR 66.67 (mL/min/1.73m2); Glucose 91 mg/dL (74-106); HDL Cholesterol 68 mg/dL (>or=50); Potassium 4.1 mmol/L (3.5-5.1); Sodium 141 mmol/L (136-145); Total Protein 7.0 g/dL (6.4-8.2); Triglyceride 106 mg/dL (<150)
[2024-12-19 10:17] LABS: Apolipoprotein B, S 130 mg/dL
== END 2024-12-17 03:14 | disposition home or self-care (01) ==
LOC: LOS 03:13
PROVIDERS: PCP Nurse Practitioner Family; Visit Provider Naturopath
DX: E78.00 Pure hypercholesterolemia, unspecified (principal); I10 Essential (primary) hypertension; R35.0 Frequency of micturition; R42 Dizziness and giddiness; R53.83 Other fatigue
CPT/HCPCS: 36415; 80053; 80061; 82172; 81003

== ENCOUNTER 2025-04-15 03:28 | Outpatient (CLI) | payer MEDICARE, BC, SELFPAY ==
[2025-04-15 14:23] LABS: Anion Gap 4.7 mmol/L (3-11); BUN 15 mg/dL (7-18); CO2 29.3 mmol/L (21.0-32.0); Calcium 8.6 mg/dL (8.5-10.1); Chloride 106 mmol/L (98-107); Cholesterol 274 mg/dL (<200); Glucose 92 mg/dL (74-106); HDL Cholesterol 68 mg/dL (>or=50); Potassium 4.3 mmol/L (3.5-5.1); Sodium 140 mmol/L (136-145)
== END 2025-04-15 03:29 | disposition home or self-care (01) ==
LOC: LOS 03:28
PROVIDERS: PCP Nurse Practitioner Family; Visit Provider Nurse Practitioner Family
DX: N18.30 Chronic kidney disease, stage 3 unspecified (principal); I10 Essential (primary) hypertension; M81.0 Age-related osteoporosis without current pathological fracture
CPT/HCPCS: 36415; 80048; 80061